=== PATIENT | male | born 1945 | race Caucasian/White ===

== ENCOUNTER 2020-04-22 06:12 | Day surgery (SDC) | payer MEDICARE, MEDICAID, SELFPAY ==
[2020-04-17 20:42] VITALS: BMI 29.0
--- NOTE | 2020-04-21 12:43 | HO.ANESPROP2 ---
Documented by User: Cary Rosa 04/21/20 13:09 HPI - Anesthesia Eval Consult details Narrative: 74yo M for Upper Endoscopy and Colonoscopy [facility] Past Medical History Medical History Above knee amputation of left lower extremity GERD (gastroesophageal reflux disease) History of esophagitis HTN (hypertension) Hypercholesteremia Thoracic aortic aneurysm Vertigo Surgical History Surgical History H/O removal of cyst History of carpal tunnel surgery of left wrist History of carpal tunnel surgery of right wrist History of hand surgery History of total right knee replacement (TKR) Social History Social History Smoking Status: Never smoker Use of substances other than those prescribed or required for medical reasons: No Advance Directives: Yes Advance Directives Information Provided: Yes Advance Directives on File: Yes Advance Directives Date on File: 06/21/09 Meds Allergies Allergy/AdvReac Type Severity Reaction Status Date / Time morphine [MORPHINE] Allergy Mild NAUSEA Verified 04/17/20 20:32 acetaminophen [Ultracet] Allergy Unknown Drowsy Verified 04/17/20 20:32 Penicillins [PENICILLINS] Allergy Unknown NAUSEA & Verified 04/17/20 20:32 VOMITING tramadol [Ultracet] Allergy Unknown Nausea Verified 04/17/20 20:32 oxycodone [OXYCODONE] AdvReac Unknown NAUSEA Verified 04/17/20 20:32 SEAFOOD Allergy Unknown NAUSEA & Uncoded 03/06/20 15:01 VOMITING shellfish Allergy Unknown anaphylaxis Uncoded 01/10/20 00:00 Codeine Sulfate AdvReac Unknown Nausea Uncoded 04/17/20 20:32 Home Medications Medication Instructions Recorded Confirmed Type Aspirin Low Dose 81 mg PO DAILY 04/17/20 04/17/20 History Fish Oil 1 cap PO DAILY 04/17/20 04/17/20 History Vitamin C 1 cap PO DAILY 04/17/20 04/17/20 History amlodipine 5 mg PO DAILY 04/17/20 04/17/20 History atenolol 50 mg PO DAILY 04/17/20 04/17/20 History atorvastatin 40 mg PO DAILY 04/17/20 04/17/20 History levothyroxine 112 mcg PO DAILY 04/17/20 04/17/20 History meclizine 25 mg PO DAILY 04/17/20 04/17/20 History pantoprazole 40 mg PO DAILY 04/17/20 04/17/20 History vitamin B complex 1 cap PO DAILY 04/17/20 04/17/20 History Exam Exam Date and Time: April 21, 2020 1243 Height,Weight and Vital Signs: Height 5 ft 9 in Weight 89.358 kg Pertinent Lab Results Pertinent Lab Results: Laboratory Tests 11/08/19 11/08/19 07:35 07:35 WBC 10.0 RBC 5.43 Hgb 16.5 Hct 47.3 Plt Count 236 Sodium 137 Potassium 5.1 Chloride 100 BUN 18 H Creatinine 0.99 Narrative Narrative: EKG 06/2019: SB@57 ECHO 05/2019: LVEF 60-65%, no signif valve pathology, mild dilation of the asc aorta @ 4.2cm Stress 2017: nml perfusion Assessment and Plan Assessment Anesthesia Assessment: Chart Reviewed Documented by User: María Russell 04/22/20 07:54 PMFSH Past Medical History Medical History Above knee amputation of left lower extremity GERD (gastroesophageal reflux disease) History of esophagitis HTN (hypertension) Hypercholesteremia Thoracic aortic aneurysm Vertigo Surgical History Surgical History H/O removal of cyst History of carpal tunnel surgery of left wrist History of carpal tunnel surgery of right wrist History of hand surgery History of total right knee replacement (TKR) Social History Social History Smoking Status: Never smoker Use of substances other than those prescribed or required for medical reasons: No Advance Directives: Yes Advance Directives Information Provided: Yes Advance Directives on File: Yes Advance Directives Date on File: 06/21/09 Meds Allergies Allergy/AdvReac Type Severity Reaction Status Date / Time morphine [MORPHINE] Allergy Mild NAUSEA Verified 04/17/20 20:32 acetaminophen [Ultracet] Allergy Unknown Drowsy Verified 04/17/20 20:32 Penicillins [PENICILLINS] Allergy Unknown NAUSEA & Verified 04/17/20 20:32 VOMITING tramadol [Ultracet] Allergy Unknown Nausea Verified 04/17/20 20:32 oxycodone [OXYCODONE] AdvReac Unknown NAUSEA Verified 04/17/20 20:32 SEAFOOD Allergy Unknown NAUSEA & Uncoded 03/06/20 15:01 VOMITING shellfish Allergy Unknown anaphylaxis Uncoded 01/10/20 00:00 Codeine Sulfate AdvReac Unknown Nausea Uncoded 04/17/20 20:32 Home Medications Medication Instructions Recorded Confirmed Type Aspirin Low Dose 81 mg PO DAILY 04/17/20 04/17/20 History Fish Oil 1 cap PO DAILY 04/17/20 04/17/20 History Vitamin C 1 cap PO DAILY 04/17/20 04/17/20 History amlodipine 5 mg PO DAILY 04/17/20 04/17/20 History atenolol 50 mg PO DAILY 04/17/20 04/17/20 History atorvastatin 40 mg PO DAILY 04/17/20 04/17/20 History levothyroxine 112 mcg PO DAILY 04/17/20 04/17/20 History meclizine 25 mg PO DAILY 04/17/20 04/17/20 History pantoprazole 40 mg PO DAILY 04/17/20 04/17/20 History vitamin B complex 1 cap PO DAILY 04/17/20 04/17/20 History Exam Airway Mallampati Class: II TM Dist: >3cm Neck ROM: Full Heart: RRR Lungs: CTA Assessment and Plan Assessment Anesthesia Assessment: Anesthesia Plan Discussed and Chart Reviewed Final Anesthetic Review NPO: Yes ASA Class: II Final Preanesthetic Review: Meds/Allgs Chart Reviewed, Consent Obtained/Reviewed and Anes Risks/Benef Reviewed Patient Risk: Intermediate Procedure Risk: Intermediate Anesthetic Plan Anesthetic Plan: MAC: Disposition: Standard PACU
[2020-04-22 06:36] VITALS: BP 142/70; PULSE 66; RESP 16; TEMP 36.6; O2SAT 98
[2020-04-22] MEDS: Lactated Ringers 1,000 ML 100 ML IVCONT (06:52)
--- NOTE | 2020-04-22 07:32 | MHC.SHP ---
Pre-Procedural Eval Section B Chief Complaint: SCREENING,GERD Details of Present Illness: see H&P, no changes Relevant Family History (Specify if Yes): No Relevant Social History: None Present Medications: see Short Stay Collaborative assessment Medical History: Significant History (no changes) History of Previous Operations: No relevant previous surgery Allergies: Allergies Allergy/AdvReac Type Severity Reaction Status Date / Time morphine [MORPHINE] Allergy Mild NAUSEA Verified 04/17/20 20:32 acetaminophen [Ultracet] Allergy Unknown Drowsy Verified 04/17/20 20:32 Penicillins [PENICILLINS] Allergy Unknown NAUSEA & Verified 04/17/20 20:32 VOMITING tramadol [Ultracet] Allergy Unknown Nausea Verified 04/17/20 20:32 oxycodone [OXYCODONE] AdvReac Unknown NAUSEA Verified 04/17/20 20:32 SEAFOOD Allergy Unknown NAUSEA & Uncoded 03/06/20 15:01 VOMITING shellfish Allergy Unknown anaphylaxis Uncoded 01/10/20 00:00 Codeine Sulfate AdvReac Unknown Nausea Uncoded 04/17/20 20:32 Review of Systems Sugical H&P ROS: Negative: Constitution, Cardiovascular, Respiratory, Neurological, Psychiatric, Hem-Onc, Allergic/Immunologic, Gastrointestinal, Genitourinary, Musculoskeletal, Integumentary, Endocrine and Eyes/Ears/Nose/Throat Exam Surgical H&P Exam: Normal: HEENT, Normal: Heart, Normal: Lungs, Normal: Extremities, Normal: Abdomen, Normal: Skin and Normal: Neurological Plan Diagnosis/Plan: Unchanged Patient has been examined and remains a candidate for the planned procedure
[2020-04-22 08:14] VITALS: BP 105/63; PULSE 55; RESP 16; TEMP 36.6; O2SAT 99
--- NOTE | 2020-04-22 08:22 | PM.OP ---
Brief Operative Note Date of procedure: 04/22/20 Pre-op diagnosis: gerd, screening Post-op diagnosis: same (colon polyps) Procedure: egd/colon Surgeon: Yandel Cuellar Anesthesia: MAC Estimated blood loss (mL): 5 Pathology: other (polyps 80, 50 cm) Condition: stable Disposition: PACU
[2020-04-22 08:31] VITALS: BP 103/57; PULSE 62; RESP 13; TEMP 36.6; O2SAT 98
--- NOTE | 2020-04-22 08:55 | OP_ITS ---
SURGEON: Yandel Cuellar MD INDICATIONS: 1. Gastroesophageal reflux disease. 2. Colon cancer screening. PREOPERATIVE DIAGNOSIS: POSTOPERATIVE DIAGNOSIS: PROCEDURE PERFORMED: 1. Upper endoscopy. 2. Colonoscopy to the terminal ileum with biopsy. ESTIMATED BLOOD LOSS: COMPLICATIONS: ANESTHESIA: ASSISTANTS: SPECIMENS: MEDICATIONS: Monitored anesthesia care. DESCRIPTION OF PROCEDURE: History and physical performed. The risks and benefits of the procedure were explained to the patient. Informed consent was obtained. The patient was placed in the left lateral decubitus position. The Olympus video gastroscope was introduced into the esophagus, stomach, and duodenum. Examination was performed and the scope was removed. He was repositioned for colonoscopy. A digital rectal exam was performed and was found to be normal. The Olympus pediatric video colonoscope was introduced into the rectum and advanced to the cecum without difficulty. The cecum was identified by transillumination, palpation, and identification of ileocecal valve. Examination was performed. The scope was removed. He tolerated both procedures well and was taken to recovery area in stable condition. FINDINGS: UPPER ENDOSCOPY: Esophagus: The esophagus was normal. The EG junction was slightly irregular. There was no esophagitis. Stomach: Stomach showed no evidence of masses, ulcers, or polyps. There was a small hiatal hernia. Duodenum: The bulb and second portion were normal. COLONOSCOPY: The terminal ileum was normal. The visualized colonic mucosa was within normal limits without evidence of masses or ulcers. Two polyps were identified, removed with biopsy forceps. Both measured less than 5 mm. The first was located at 80 cm. A second was located at 50 cm. No other polyps were identified. The quality of prep was good. Retroflexed examination showed moderate-sized internal hemorrhoids. IMPRESSION: 1. Gastroesophageal reflux disease. 2. Small hiatal hernia. 3. Colon polyps. RECOMMENDATION: Follow up the biopsy results. MD ZULEMA Storey/KIMBER / [id number]
--- NOTE | 2020-04-22 09:07 | HO.POSTANES ---
Post Anesthesia Evaluation Post Anesthesia Evaluation Vital Signs: Vital Signs Temp Pulse Resp BP Pulse Ox 04/22/20 08:31 97.8 F 62 13 103/57 L 98 04/22/20 08:14 97.8 F 55 16 105/63 99 04/22/20 06:36 97.8 F 66 16 142/70 H 98 Anesthesia: Monitored Mental Status: Awake Pain Control: Satisfactory Nausea/Vomiting: None Hydration: Adequate Anesthesia-Related Issues: No Anes. Related Issues
== END 2020-04-22 09:50 | disposition home or self-care (01) ==
PROVIDERS: PCP Internal Medicine; Visit Provider Internal Medicine Gastroenterology
PROC: (CPT 45380; principal; 2020-04-22 07:30)
DX: Z12.11 Encounter for screening for malignant neoplasm of colon (principal); Z86.010 Personal history of colon polyps; D12.4 Benign neoplasm of descending colon; K63.5 Polyp of colon; K64.8 Other hemorrhoids; K21.9 Gastro-esophageal reflux disease without esophagitis; K44.9 Diaphragmatic hernia without obstruction or gangrene; I10 Essential (primary) hypertension; R42 Dizziness and giddiness; Z89.612 Acquired absence of left leg above knee; Z96.651 Presence of right artificial knee joint; Z79.82 Long term (current) use of aspirin; Z79.899 Other long term (current) drug therapy; Z88.0 Allergy status to penicillin; Z88.8 Allergy status to other drugs, medicaments and biological substances
CPT/HCPCS: 45380; 43239; 88305

== ENCOUNTER 2020-06-03 07:33 | Outpatient (REF) | payer MEDICARE, MEDICAID, SELFPAY ==
[2020-06-03 11:13] LABS: MANUAL DIFF FLAG NO
[2020-06-03 11:22] LABS: Basophils Absolute Auto 0.1 X10*3/uL (0.0-0.2); Basophils Percent Auto 0.9 % (0-2); Eosinophils Absolute Auto 0.5 X10*3/uL (0.0-0.4); Eosinophils Percent Auto 4.8 % (0-4); Hematocrit 48.8 % (42-52); Hemoglobin 16.4 g/dl (14.0-18.0); Imm Gran Abs Auto 0.12 X10*3/uL (0.00-0.03); Imm Gran Pct Auto 1.2 % (0.0-0.4); Lymphocytes Absolute Auto 3.3 X10*3/uL (1.2-4.9); Lymphocytes Percent Auto 33.2 % (20-40); Mean Corpuscular HGB Conc 33.6 g/dl (31.0-36.0); Mean Corpuscular Hemoglobin 29.6 pg (27.0-33.0); Mean Corpuscular Volume 88.1 fL (80-98); Mean Platelet Volume 10.5 fL (9.4-12.4); Monocytes Absolute Auto 0.9 X10*3/uL (0.1-1.2); Monocytes Percent Auto 8.6 % (2-11); Neutrophils Absolute Auto 5.1 X10*3/uL (2.0-8.3); Neutrophils Percent Auto 51.3 % (45-73); Platelet Count 274 X10*3/uL (160-400); Red Blood Count 5.54 X10*6/uL (4.60-5.80); Red Cell Distribution Width 13.3 % (11.0-16.0)
[2020-06-03 12:28] LABS: Alanine Aminotransferase 26 U/L (0-40); Albumin Level 4.4 g/dL (3.5-5.0); Alkaline Phosphatase 66 U/L (39-117); Anion Gap 16 (12-20); Aspartate Amino Transferase 24 U/L (5-37); Bilirubin Total 1.2 mg/dL (0.0-1.0); Blood Urea Nitrogen 14 mg/dL (9-16); Carbon Dioxide 24 mmol/L (22-29); Chloride 101 mmol/L (96-108); Cholesterol 154 mg/dL; Estimated Glomerular Filt Rate > 60; Glucose Fasting 147 mg/dL (60-99); HDL Cholesterol 41 mg/dL; LDL Cholesterol Calculated 68 mg/dl; Potassium 5.4 mmol/l (3.3-5.1); Sodium 136 mmol/L (135-145); Total Protein 7.1 g/dL (6.5-8.0); Triglycerides 226 mg/dL
[2020-06-03 12:49] LABS: Free T4 (Free Thyroxine) 1.01 ng/dL (0.71-1.85); Thyroid Stimulating Hormone 3.41 uIU/mL (0.32-4.0)
== END 2020-06-03 07:34 | disposition home or self-care (01) ==
LOC: HO.HMGCLDS 07:33
PROVIDERS: PCP Internal Medicine; Visit Provider Internal Medicine
DX: E78.00 Pure hypercholesterolemia, unspecified (principal); K21.9 Gastro-esophageal reflux disease without esophagitis; I71.2 Thoracic aortic aneurysm, without rupture; E03.9 Hypothyroidism, unspecified; I10 Essential (primary) hypertension; Z87.19 Personal history of other diseases of the digestive system
CPT/HCPCS: 36415; 80053; 80061; 84439; 84443; 85025

== ENCOUNTER → 2021-01-15 10:13 | Outpatient (REF) | payer MEDICARE, MEDICAID, SELFPAY ==
--- NOTE | 2021-01-15 10:21 | CA_ITS ---
Transthoracic Echocardiogram Patient (Last, First, Middle): Lazaro Dotson J Gender: Male Date of : 1945 Age: 75 Procedure Date: 01/15/2021 Procedure Type: Transthoracic Echocardiogram Location: OP Height: 177.8 cm Weight: 88.45 kg BSA: 2.06 m2 Heart Rate: bpm BP: 124 / 74 mmHg Fruit Or Nut Picker: [email or web address] Referring MD: Chico Berry MD Symptoms: I77.810 THORACIC AORTIC ECTASIA Study Quality: Fair ECG Rhythm: Sinus Conclusions: - The left ventricular systolic function is normal. The calculated ejection fraction is 63% by biplane method. - There is mild calcification of the aortic valve. - There is mild mitral annular calcification. Findings Left Ventricle Normal left ventricular cavity size. There is normal left ventricular wall thickness. The left ventricular systolic function is normal. The calculated ejection fraction is 63% by biplane method. There is no evidence of regional wall motion abnormalities. E/E prime ratio is between 8 and 15 consistent with indeterminate filling pressures. Evidence suggests grade I (mild) diastolic dysfunction. Right Ventricle Normal right ventricular cavity size and systolic function. Atria Both atria are normal in size. Aortic Valve There is a normal trileaflet aortic valve. There is mild calcification of the aortic valve. There is no aortic valve stenosis. There is no aortic valve regurgitation. Mitral Valve There is mild mitral annular calcification. There is no mitral valve regurgitation. There is no mitral valve stenosis. Pulmonic Valve The pulmonic valve was not well visualized. Tricuspid Valve Normal tricuspid valve structure. There is trace tricuspid valve regurgitation. The pulmonary artery systolic pressure is normal. Great Vessels Top normal ascending aortic size at 3.9cm. Venous The inferior vena cava was not well visualized. Pericardium/Pleural There is no evidence of pericardial effusion. Prior Study Comparison Changes noted compared to prior study dated: 06/06/2019. Ascending aortic dimension smaller. Measurements 2D Linear Measurements IVSd: 0.97 0.6-0.9/0.6-1.0 cm LVIDd: 4.21 3.9-5.3/4.2-5.9 cm LVIDd Index: 2.04 2.4-3.2/2.2-3.1 cm/m2 LVIDs: 2.74 2.0-3.6 cm LVPWd: 1.05 0.7-1.1 cm Ao Root: 3.60 2.1-3.5 cm LA Diam: 3.00 2.7-3.8/3.0-4.0 cm LAIDs Index: 1.46 1.5-2.3 cm/m2 LV Mass: 174.36 67-162/88-224 g LV Mass Index: 84.64 43-95/49-115 g/m2 LVOT Diam: 2.80 3.0+(-)1.3 cm 2D Systolic Function EF 4C: 70.60 >55% EF 2C: 58.70 >55% EF BiP: 63.10 >55% Mitral Valve MV Pk E: 0.63 MV PK A: 0.83 MV Decel Time: 348.00 E/A: 0.80 E'Lateral: 7.40 E'Medial: 5.11 E/E' Med: 12.40 E/E' Lat: 8.60 PHT: 102.00 MVA PHT: 2.16 Decel [place]: 1.82 Aortic Valve AoV Pk Bud: 1.44 AoV Pk Grad: 8.00 LVOT LVOT Pk Bud: 0.83 LVOT Mn Bud: 0.50 LVOT VTI: 0.16 LVOT Pk Grad: 3.00 LVOT Mn Grad: 1.00 LVOT Diam: 2.80 LVOT Area: 6.16 Diastolic Function MV Pk E: 0.63 MV Pk A: 0.83 E/A: 0.80 E'Medial: 5.11 E/E' Med: 12.40 E' Laterial: 7.40 E/E' Lat: 8.60 Right Ventricle TAPSE (mm): 1.99 Tricuspid Valve TR Pk Bud: 1.83 TR Pk Grad: 13.00 RA Press: 3.00 RVSP: 16.00 Great Vessels Aorta Ao Root-2D: 3.60 2.0-3.7 cm Ao Asc: 3.90 2.1-3.4 cm Updated in Other Vendor System with Status of Final Chico Berry MD electronically signed on 01/17/2021 11:45:16 AM with status of Final
== END ==
LOC: HO.CARD 10:13
PROVIDERS: PCP Internal Medicine; Visit Provider Internal Medicine
DX: I77.810 Thoracic aortic ectasia (principal)
CPT/HCPCS: 93306

== ENCOUNTER → 2021-01-21 10:24 | Outpatient (BNVA) | payer MEDICARE, MEDICAID, SELFPAY | PROVIDERS: PCP Internal Medicine; Visit Provider Internal Medicine | DX: I77.89 Other specified disorders of arteries and arterioles (principal); I10 Essential (primary) hypertension; I44.0 Atrioventricular block, first degree | CPT/HCPCS: 93005; 99212 ==

== ENCOUNTER 2021-02-10 06:13 | Outpatient (REF) | payer MEDICARE, MEDICAID, SELFPAY ==
[2021-02-10 12:33] LABS: Alanine Aminotransferase 38 U/L (0-40); Albumin Level 4.4 g/dL (3.5-5.0); Alkaline Phosphatase 72 U/L (39-117); Anion Gap 17 (12-20); Aspartate Amino Transferase 29 U/L (5-37); Bilirubin Total 1.4 mg/dL (0.0-1.0); Blood Urea Nitrogen 13 mg/dL (9-16); Calcium 9.4 mg/dL (8.4-10.2); Carbon Dioxide 25 mmol/L (22-29); Chloride 100 mmol/L (96-108); Cholesterol 151 mg/dL; Estimated Glomerular Filt Rate > 60; Glucose Fasting 159 mg/dL (60-99); HDL Cholesterol 41 mg/dL; LDL Cholesterol Calculated 68 mg/dl; Sodium 137 mmol/L (135-145); Total Protein 7.1 g/dL (6.5-8.0); Triglycerides 214 mg/dL
[2021-02-10 12:36] LABS: Creatinine Urine 75.42 mg/dL; Microalbum/Creatinine Ratio Ur 74.2 ug/mg cr
[2021-02-10 12:55] LABS: Free T4 (Free Thyroxine) 1.02 ng/dL (0.71-1.85); Thyroid Stimulating Hormone 6.02 uIU/mL (0.32-4.0)
== END 2021-02-10 06:14 | disposition home or self-care (01) ==
LOC: HO.HMGCLDS 06:13
PROVIDERS: PCP Internal Medicine; Visit Provider Internal Medicine
DX: Q45.3 Other congenital malformations of pancreas and pancreatic duct (principal); E03.9 Hypothyroidism, unspecified; E78.00 Pure hypercholesterolemia, unspecified; K21.9 Gastro-esophageal reflux disease without esophagitis; Z87.19 Personal history of other diseases of the digestive system
CPT/HCPCS: 36415; 80053; 80061; 82043; 84439; 84443

== ENCOUNTER 2021-04-28 08:52 | Outpatient (REF) | payer MEDICARE, MEDICAID, SELFPAY ==
[2021-04-28 12:33] LABS: Free T4 (Free Thyroxine) 1.06 ng/dL (0.71-1.85); Thyroid Stimulating Hormone 2.71 uIU/mL (0.32-4.0)
[2021-04-28 12:34] LABS: Alanine Aminotransferase 29 U/L (0-40); Anion Gap 14 (12-20); Aspartate Amino Transferase 22 U/L (5-37); Blood Urea Nitrogen 12 mg/dL (9-16); Calcium 9.1 mg/dL (8.4-10.2); Carbon Dioxide 24 mmol/L (22-29); Chloride 106 mmol/L (96-108); Cholesterol 119 mg/dL; Estimated Glomerular Filt Rate > 60; Glucose Fasting 128 mg/dL (60-99); HDL Cholesterol 38 mg/dL; LDL Cholesterol Calculated 60 mg/dl; Potassium 4.8 mmol/L (3.3-5.1); Sodium 139 mmol/L (135-145); Triglycerides 109 mg/dL
[2021-04-28 12:56] LABS: Estimated Average Glucose 137 mg/dL; Hemoglobin A1c % 6.4 %
== END 2021-04-28 08:53 | disposition home or self-care (01) ==
LOC: HO.HMGCLDS 08:52
PROVIDERS: PCP Internal Medicine; Visit Provider Internal Medicine
DX: E11.9 Type 2 diabetes mellitus without complications (principal); I10 Essential (primary) hypertension; E03.9 Hypothyroidism, unspecified; E78.00 Pure hypercholesterolemia, unspecified
CPT/HCPCS: 36415; 80048; 80061; 83036; 84439; 84443; 84450; 84460

== ENCOUNTER 2021-06-02 06:26 | Emergency (ER) | payer OTHER, SELFPAY ==
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
[2021-06-02 06:36] VITALS: BP 145/65; PULSE 63; RESP 16; TEMP 36.5; O2SAT 97; BMI 20.5
[2021-06-02 06:44] VITALS: BP 153/90; PULSE 64; O2SAT 99
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
== END 2021-06-02 09:32 | disposition home or self-care (01) ==
PROVIDERS: Emergency Provider Emergency Medicine; PCP Internal Medicine
DX: S80.811A Abrasion, right lower leg, initial encounter (principal); V49.49XA Driver injured in collision with other motor vehicles in traffic accident, initial encounter; M79.18 Myalgia, other site; Y93.89 Activity, other specified; Y92.411 Interstate highway as the place of occurrence of the external cause; Y99.9 Unspecified external cause status
CPT/HCPCS: 70450; 72125; 99283; 99284

== ENCOUNTER 2021-11-23 06:05 | Outpatient (REF) | payer MEDICARE, MEDICAID, SELFPAY ==
[2021-11-23 11:53] LABS: Alanine Aminotransferase 28 U/L (0-40); Anion Gap 15 (12-20); Aspartate Amino Transferase 26 U/L (5-37); Blood Urea Nitrogen 20 mg/dL (9-16); Calcium 9.2 mg/dL (8.4-10.2); Carbon Dioxide 25 mmol/L (22-29); Chloride 103 mmol/L (96-108); Cholesterol 147 mg/dL; Estimated Glomerular Filt Rate > 60; Glucose Fasting 140 mg/dL (60-99); HDL Cholesterol 45 mg/dL; LDL Cholesterol Calculated 75 mg/dl; Potassium 5.2 mmol/L (3.3-5.1); Sodium 138 mmol/L (135-145); Triglycerides 139 mg/dL
[2021-11-23 12:02] LABS: Free T4 (Free Thyroxine) 1.22 ng/dL (0.71-1.85); Thyroid Stimulating Hormone 1.54 uIU/mL (0.32-4.0)
[2021-11-23 12:10] LABS: Creatinine Urine 65.19 mg/dL; Microalbum/Creatinine Ratio Ur 13.8 ug/mg cr
== END 2021-11-23 06:06 | disposition home or self-care (01) ==
LOC: HO.HMGCLDS 06:05
PROVIDERS: PCP Internal Medicine; Visit Provider Internal Medicine
DX: E11.9 Type 2 diabetes mellitus without complications (principal); E78.00 Pure hypercholesterolemia, unspecified; I10 Essential (primary) hypertension; E03.9 Hypothyroidism, unspecified
CPT/HCPCS: 36415; 80048; 80061; 82043; 84439; 84443; 84450; 84460

== ENCOUNTER → 2022-01-25 08:23 | Outpatient (REF) | payer MEDICARE, MEDICAID, SELFPAY ==
--- NOTE | 2022-01-25 08:26 | CA_ITS ---
Transthoracic Echocardiogram Patient (Last, First, Middle): Lazaro Dotson J Gender: Male Date of : 1945 Age: 76 Procedure Date: 01/25/2022 Procedure Type: Transthoracic Echocardiogram Location: OP Height: 177.8 cm Weight: 89.36 kg BSA: 2.07 m2 Heart Rate: 99 bpm BP: 122 / 68 mmHg Orientation & Mobility Specialist: SB Referring MD: Chico Berry MD Symptoms: I77.89 - Other specified disorders of arteries and arteri... Study Quality: Adequate ECG Rhythm: Sinus Conclusions: - The left ventricular systolic function is normal. The calculated ejection fraction is 61% by biplane method. - There is mild calcification of the aortic valve. - There is mild mitral annular calcification. Findings Left Ventricle Normal left ventricular cavity size. There is normal left ventricular wall thickness. The left ventricular systolic function is normal. The calculated ejection fraction is 61% by biplane method. There is no evidence of regional wall motion abnormalities. E/E prime ratio is between 8 and 15 consistent with indeterminate filling pressures. Evidence suggests grade I (mild) diastolic dysfunction. There is mild septal asymmetric hypertrophy. Right Ventricle Normal right ventricular cavity size. There is low normal right ventricular systolic function. (TAPSE re-measured) Atria Both atria are normal in size. Aortic Valve There is a normal trileaflet aortic valve. There is mild calcification of the aortic valve. There is no aortic valve stenosis. There is no aortic valve regurgitation. Mitral Valve There is mild mitral annular calcification. There is trace mitral valve regurgitation. There is no mitral valve stenosis. Pulmonic Valve The pulmonic valve is likely normal. Tricuspid Valve Normal tricuspid valve structure. There is trace tricuspid valve regurgitation. Tricuspid regurgitation envelope is inadequate for calculation of right ventricular systolic pressure. Great Vessels There is no dilatation of the sinuses of Valsalva measuring 4.00 cm and no dilatation of the ascending aorta measuring 3.80 cm. Venous The inferior vena cava was not well visualized. Pericardium/Pleural There is no evidence of pericardial effusion. Prior Study Comparison No significant change compared to prior study dated: 01/15/2021. Measurements 2D Linear Measurements IVSd: 0.78 0.6-0.9/0.6-1.0 cm LVIDd: 5.05 3.9-5.3/4.2-5.9 cm LVIDd Index: 2.44 2.4-3.2/2.2-3.1 cm/m2 LVIDs: 3.36 2.0-3.6 cm LVPWd: 0.52 0.7-1.1 cm LA Diam: 3.00 2.7-3.8/3.0-4.0 cm LAIDs Index: 1.45 1.5-2.3 cm/m2 LV Mass: 132.98 67-162/88-224 g LV Mass Index: 64.24 43-95/49-115 g/m2 LVOT Diam: 2.10 3.0+(-)1.3 cm 2D Systolic Function EF 4C: 62.10 >55% EF 2C: 61.40 >55% EF BiP: 61.20 >55% Mitral Valve MV Pk E: 0.72 MV PK A: 0.92 MV Decel Time: 358.00 E/A: 0.80 E'Lateral: 7.83 E'Medial: 5.00 E/E' Med: 14.30 E/E' Lat: 9.10 PHT: 105.00 MVA PHT: 2.10 Decel Ness: 2.00 Aortic Valve AoV Pk Bud: 1.26 AoV Mn Bud: 0.95 AoV VTI: 0.26 AoV Pk Grad: 6.00 Aov Mn Grad: 4.00 SHELLY Cont.VTI: 3.28 LVOT LVOT Pk Bud: 1.18 LVOT Mn Bud: 0.76 LVOT VTI: 0.25 LVOT Pk Grad: 6.00 LVOT Mn Grad: 3.00 LVOT Diam: 2.10 LVOT Area: 3.46 Diastolic Function MV Pk E: 0.72 MV Pk A: 0.92 E/A: 0.80 E'Medial: 5.00 E/E' Med: 14.30 E' Laterial: 7.83 E/E' Lat: 9.10 Right Ventricle TAPSE (mm): 10.90 TVS' Bud: 9.10 Great Vessels Aorta Sinus of Valsalva: 4.00 2.0-3.5 cm Ao Asc: 3.80 2.1-3.4 cm Pulmonary Valve PV Pk Bud: 1.03 Peak PV Grad: 4.00 Updated in Other Vendor System with Status of Final Chico Berry MD electronically signed on 01/25/2022 11:16:16 AM with status of Final
== END ==
LOC: HO.CARD 08:23
PROVIDERS: PCP Internal Medicine; Visit Provider Internal Medicine
DX: I77.89 Other specified disorders of arteries and arterioles (principal)
CPT/HCPCS: 93306

== ENCOUNTER 2023-11-24 08:14 | Emergency (ER) | payer MEDICARE, MEDICAID, SELFPAY ==
--- NOTE | 2023-11-24 | ECG_ITS ---
Test Reason : HYPERKALEMIA Blood Pressure : / mmHG Vent. Rate : 055 BPM Atrial Rate : 055 BPM P-R Int : 282 ms QRS Dur : 100 ms QT Int : 462 ms P-R-T Axes : 015 -09 039 degrees QTc Int : 441 ms Sinus bradycardia with 1st degree A-V block Incomplete right bundle branch block Borderline ECG When compared with ECG of 14-APR-2017 08:54, No significant change was found Referred By: Aye Hernandez Electronically Signed By:NANCY ROBERT MD
[2023-11-24 08:17] VITALS: BP 144/77; PULSE 59; RESP 18; TEMP 36.1; O2SAT 97; BMI 27.7
--- NOTE | 2023-11-24 08:34 | PC.NURSE ---
patient a&ox3, pt states his rt shoulder has a wound that previously had a scab on that the dr took off, pt states his daughter put stuff on it with a bandaid, notable redness upon this nurse taking off one of the XL adhesive bandages- the redness is in the exact shape of the bandage that was removed, pt states that he has an allergy to bandages if kept on too long. pt states he has 8/10 pain and didnt take any OTC medication for pain, pt states Im stubborn when asked why he didnt take any otc pain medication.
--- NOTE | 2023-11-24 08:53 | ED.GENADULT ---
HPI - General Adult General Chief complaint: Skin/Abscess/Foreign Body Stated complaint: Upper back pain L side Time Seen by Provider: 11/24/23 08:40 Source: patient Mode of arrival: ambulatory Limitations: no limitations History of Present Illness ED Provider: Aye Hernandez PA-C HPI narrative: This is a 77 yo male with a pmh of T2DM, esophagitis, BPH, below knee amputation of LLE, OA, ascending aorta enlargement, GERD, hypercholesterolemia, vertigo, pancreatic divisum, aquired hypothyroidism presents with a sore/wound to the left upper shoulder/back x 1-2months. Patient reports increased redness/drainage/swelling to the area. Patient states he has seen his PCP about 3 weeks ago who advised to go to cyber security architect. States appointment is in March but since the pain and drianage has increased he wanted to come in today to get it checked out. Patient reports his Dr told him he did not believe the lesion was cancerous. Patient also states he had a similar lesion way back years ago on his mid back which he saw a cyber security architect for although he is not sure what it was. Related Data Home Medications ?Medication ?Instructions ?Recorded ?Confirmed Aspirin Low Dose 81 mg PO DAILY 04/17/20 12/07/21 Fish Oil 1 cap PO DAILY 04/17/20 12/07/21 Vitamin C 1 cap PO DAILY 04/17/20 12/07/21 vitamin B complex 1 cap PO DAILY 04/17/20 12/07/21 Previous Rx's ?Medication ?Instructions ?Recorded levothyroxine 112 mcg tablet See Rx Instructions PO DAILY #90 10/21/21 tabs metformin 500 mg tablet,extended 500 mg PO QPM #30 tabs 04/05/22 release 24 hr amlodipine 5 mg tablet 5 mg PO DAILY #90 tabs 05/18/22 meclizine 25 mg tablet 25 mg PO BID PRN dizziness #60 tabs 05/18/22 pantoprazole 40 mg tablet,delayed 40 mg PO DAILY #90 tabs 05/18/22 release ibuprofen 800 mg tablet 800 mg PO BID PRN pain #60 tabs 06/16/22 atorvastatin 40 mg tablet 40 mg PO DAILY #90 tabs 09/23/22 atenolol 50 mg tablet 50 mg PO DAILY #90 tabs 11/03/22 cephalexin 500 mg tablet 500 mg PO Q6H 10 days #40 tabs 11/24/23 Allergies Allergy/AdvReac Type Severity Reaction Status Date / Time morphine [MORPHINE] Allergy Mild NAUSEA Verified 11/24/23 08:21 tramadol [Ultracet] Allergy Unknown Nausea Verified 11/24/23 08:21 Penicillins [PENICILLINS] AdvReac Mild NAUSEA & Verified 11/24/23 08:21 VOMITING oxycodone [OXYCODONE] AdvReac Unknown NAUSEA Verified 11/24/23 08:21 SEAFOOD Allergy Unknown NAUSEA & Uncoded 11/24/23 08:21 VOMITING shellfish Allergy Unknown anaphylaxis Uncoded 11/24/23 08:21 Codeine Sulfate AdvReac Unknown Nausea Uncoded 11/24/23 08:21 Review of Systems Review of Systems: Yes all other systems are reviewed and are negative PMFSH Past Medical History Attestation statement: The following information was validated with the patient. 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 Osteoarthritis Pancreatic divisum Acquired hypothyroidism Thoracic aortic aneurysm Above knee amputation of left lower extremity Vertigo History of esophagitis GERD (gastroesophageal reflux disease) Hypercholesteremia Surgical History H/O removal of cyst History of hand surgery History of total right knee replacement (TKR) History of carpal tunnel surgery of right wrist History of carpal tunnel surgery of left wrist Family History Family History Father Lung cancer Daughter Breast cancer Mother Breast cancer Social History Social History Housing: House Alcohol intake: never Patient Tobacco Use Status: Never used Tobacco Smoked in Last 30 Days: No e-Cigarette/Vaping Use: Never Used Second Hand Smoke Exposure: No Use of substances other than those prescribed or required for medical reasons: No Advance Directives: Yes Advance Directives Information Provided: Yes Advance Directives on File: No Advance Directives Date on File: 01/02/10 Do you have a plan to hurt others: No Plan service: No Current occupational status: employed and retired Cognitive needs: No Hearing needs: No Vision needs: No Physical Exam ED Vital Signs: Vital Signs - 24 hr 11/24/23 08:17 11/24/23 09:27 11/24/23 10:20 Temperature 96.9 F 96.9 F 97.8 F Pulse Rate 59 59 60 Respiratory Rate 18 18 18 Blood Pressure 144/77 H 144/77 H 116/73 Pulse Oximetry 97 97 98 Oxygen Delivery Method Room Air Room Air Room Air 11/24/23 10:24 11/24/23 13:48 Temperature 98.0 F Pulse Rate 60 60 Respiratory Rate 14 16 Blood Pressure 120/68 Pulse Oximetry 98 Oxygen Delivery Method Room Air BMI result Body Mass Index 27.7 vss. Appearance: Alert.? Oriented X3.? No acute distress.? Head: Normocephalic, atraumatic, no step-offs or deformities Eyes: Pupils equal, round and reactive to light.? Neck: Normal inspection.? Neck supple.? CVS: Normal heart rate and rhythm.? Pulses normal.? Respiratory: No respiratory distress.? Breath sounds normal.? Abdomen: Soft and nontender.? Skin: + Raised erythematous skin nodule/growth to left shoulder/upper back with surrounding erythema in a rectangular shape, likely due to adhesive. Mild warmth noted. Mild tenderness to palpation. No drainage at time of exam. Extremities: 5/5 strength to bilateral upper and lower extremities Neuro: Oriented X 3.? No motor deficit.? No sensory deficit. CN 2-12 intact Course Reevaluation(s) Reevaluation #1: I did discuss with patient his allergy to amoxicillin. Reports he just gets nauseous. No hx of anaphylaxis, difficulty breathing. Time: 09:12 Reevaluation #2: Patient's patient will be discharged with Keflex. Time: 09:32 Reevaluation #3: CBC with slight leukocytosis could be secondary to cellulitis. Chemistry with elevated potassium 6.0 EKG obtained to rule out peak T-waves and dysrhythmias. Will give Lokelma, albuterol treatment. Time: 10:42 Additional Reevaluation(s): Patient's potassium is now 5 after Lokelma and albuterol treatment. Patient will be discharged home with prompt PCP follow-up advised repeat labs within 1-2 days. Low, is long acting so I suspect this 5.0 value will likely go down from there. No acute kidney injury. Asymptomatic. Patient states this always happens to him when he eats bananas. He states this has happened to him in the past. No chest pain, no shortness breath or palpitations. Educated patient on diagnosis and treatment plan, answered all question, patient verbalizes understanding. At this time patient will be discharged home, advised to return with new or worsening symptoms. Educated on worrisome signs and symptoms and when to return. At this time I feel comfortable discharge home. Medications Administered Discontinued Medications Generic Name Dose Route Start Last Admin Trade Name Freq PRN Reason Stop Dose Admin Albuterol Sulfate 5 mg 11/24/23 10:11 11/24/23 10:20 Albuterol Sulfate 2.5 Mg/0.5 Ml Vial.Neb INHALE 11/24/23 10:12 5 mg ONCE ONE Administration Sodium Zirconium Cyclosilicate 10 gm 11/24/23 10:11 11/24/23 10:24 Sodium Zirconium Cyclosilicate 10 Gm Powd.Pack PO 11/24/23 10:12 10 gm ONCE ONE Administration Medical Decision Making Medical Decision Making [facility] Narrative: 0900 77 yo male presents with skin growth to left upper back/shoulder x 2 months. Scheduled to see derm in March but increasing redness, drainage, pain. PE: Skin: + Raised erythematous skin nodule/growth to left shoulder/upper back with surrounding erythema in a rectangular shape, likely due to adhesive. Mild warmth noted. Mild tenderness to palpation. No drainage at time of exam Diferntial: Skin growth vs nodule, allergic reaction to adhesives, cellulitis. Unlikely necrotizing infection, neurovascular compromise, threat to limb, anaphylaxis. Malignancy remains on the differntial. Plan: Antibiotics, refer to dermatology Differential Diagnosis Differential Diagnoses: The differential diagnosis associated with the presentation includes Skin growth vs nodule, allergic reaction to adhesives, cellulitis. Unlikely necrotizing infection, neurovascular compromise, threat to limb, anaphylaxis. Malignancy remains on the differntial. Admission/Observation Consideration of admission/observation: Escalation of care including admission/observation considered (unlikely) Lab Data [facility] Lab Attestation statement: I reviewed the patient's lab results. 11/24/23 08:58 11/24/23 11:42 Labs: Lab Results 11/24/23 11/24/23 Range/Units 08:58 11:42 WBC 12.1 H (4.8-10.8) X10*3/uL RBC 5.47 (4.60-5.80) X10*6/uL Hgb 16.2 (14.0-18.0) g/dl Hct 47.0 (42.0-52.0) % MCV 85.9 (80.0-98.0) fL MCH 29.6 (27.0-33.0) pg MCHC 34.5 (31.0-36.0) g/dl RDW 13.6 (11.0-16.0) % Plt Count 251 (160-400) X10*3/uL MPV 9.5 (9.4-12.4) fL Immature Gran % (Auto) 1.1 H (0.0-0.4) % Neut % (Auto) 62.1 (45-73) % Lymph % (Auto) 23.5 (20-40) % [place] % (Auto) 8.4 (2-11) % Eos % (Auto) 4.1 H (0-4) % Baso % (Auto) 0.8 (0-2) % Lymph # (Auto) 2.8 (1.2-4.9) X10*3/uL [place] # (Auto) 1.0 (0.1-1.2) X10*3/uL Eos # (Auto) 0.5 H (0.0-0.4) X10*3/uL Baso # (Auto) 0.1 (0.0-0.2) X10*3/uL Abs Immat Gran (auto) 0.13 H (0.00-0.03) X10*3/uL Absolute Neuts (auto) 7.5 (2.0-8.3) x10*3/uL Absolute Nucleated RBC 0.000 (0.0-0.012) X10*3/uL Nucleated RBC % (auto) 0.0 (0.0-0.2) /100WBC Sodium 140 140 (135-145) mmol/L Potassium 6.0 H* 5.0 (3.3-5.1) mmol/L Chloride 105 105 (96-108) mmol/L Carbon Dioxide 25 28 (22-29) mmol/L Anion Gap 16 12 (12-20) BUN 19 H 19 H (9-16) mg/dL Creatinine 0.89 0.84 (0.5-1.4) mg/dL Estim Creat Clear Calc 75.1 79.5 Estimated GFR > 60 > 60 Random Glucose 163 H 126 H (60-115) mg/dL Calcium 10.0 D 9.9 (8.4-10.2) mg/dL Total Bilirubin 1.3 H (0.0-1.0) mg/dL AST 20 (5-37) U/L ALT 26 (0-40) U/L Alkaline Phosphatase 68 (39-117) U/L Total Protein 7.5 (6.5-8.0) g/dL Albumin 4.7 (3.5-5.0) g/dL Independent Interpretation I performed an independent interpretation of an: EKG (Ventricular rate of 55 SD slightly prolonged, QRS normal, QT/QTC normal EKG sinus bradycardia with a first-degree AV block no peaked T-waves no ST elevations or inversions concerning for acute ischemia.) External Record Review External record reviewed: Inpatient record, Office record, Outpatient record, Prior outpatient labs, Prior outpatient radiology, Primary care record and Outside ED record Prescription Management I considered prescription management with: Antibiotic (Keflex) Chronic Conditions Patient?s care impacted by: Diabetes, Hypertension and Other (BPH, ascending aorta enlargement, OA, GERD, hypercholesterolemia) Critical Care Time Critical Care Time Critical Care Time: Yes Total Critical Care Time: 35 Attestation: I attest to this time spent taking care of the patient, obtaining history, physical, reviewing labs, imaging, speaking to my attending, specialist or hospitalist. Discharge Plan Discharge Clinical Impression: Cellulitis, Abnormal skin growth, Acute hyperkalemia, AV bloc first degree Patient Disposition: Home, Self-Care Instructions: Potassium Content of Foods List (ED) Additional Instructions: Take your medications as prescribed. If you were prescribed antibiotics today, it is important that you take your medication to their entirety, do not skip any doses, do not finish them early. Follow-up with your primary care provider this week. Return to the emergency department with new or worsening symptoms. Such as fevers, chills, chest pain, shortness of breath, nausea, vomiting, dizziness, headache, vision changes, lethargy In case of emergency call 911 Please follow-up with Dermatology [facility] (as soon as possible!), you will likely need a biopsy. This could be malignant or cancerous so it is important that you follow-up promptly. Seems like your allergic to bandaids! Dont use them! Use non adhesive pads and paper tape. No more bananas. Call your PCP today for follow up within 1-2 days for high potassium Prescriptions: New cephalexin 500 mg tablet 500 mg PO Q6H 10 Days Qty: 40 0RF No Action levothyroxine 112 mcg tablet See Rx Instructions PO DAILY Qty: 90 3RF Rx Instructions: takes 1 tablet alternating with half a tablet every other day PO daily; metformin 500 mg tablet extended release 24 hr 500 mg PO QPM Qty: 30 5RF amlodipine 5 mg tablet 5 mg PO DAILY Qty: 90 1RF pantoprazole 40 mg tablet,delayed release (DR/EC) 40 mg PO DAILY Qty: 90 1RF meclizine 25 mg tablet 25 mg PO BID PRN (Reason: dizziness) Qty: 60 0RF ibuprofen 800 mg tablet 800 mg PO BID PRN (Reason: pain) Qty: 60 0RF atorvastatin 40 mg tablet 40 mg PO DAILY Qty: 90 1RF Rx Instructions: Schedule next PCP appt for future refills atenolol 50 mg tablet 50 mg PO DAILY Qty: 90 0RF Rx Instructions: schedule next PCP appt for future refills Aspirin Low Dose 81 mg PO DAILY Fish Oil 1 cap PO DAILY Vitamin C 1 cap PO DAILY vitamin B complex 1 cap PO DAILY Referrals: [facility] [Provider Group] - 1 day Adolph Bolden MD [Primary Care Provider] - 2 days Stand Alone Forms: Work/School Release Interventions: ED Discharge Assessment Last Done: 11/24/23 13:48 Discharge Date/Time: 11/24/23 13:30 Print Language: Filipino
[2023-11-24 09:02] LABS: MANUAL DIFF FLAG NO
[2023-11-24 09:04] LABS: Basophils Absolute Auto 0.1 X10*3/uL (0.0-0.2); Basophils Percent Auto 0.8 % (0-2); Eosinophils Absolute Auto 0.5 X10*3/uL (0.0-0.4); Eosinophils Percent Auto 4.1 % (0-4); Hemoglobin 16.2 g/dl (14.0-18.0); Imm Gran Abs Auto 0.13 X10*3/uL (0.00-0.03); Imm Gran Pct Auto 1.1 % (0.0-0.4); Lymphocytes Absolute Auto 2.8 X10*3/uL (1.2-4.9); Lymphocytes Percent Auto 23.5 % (20-40); Mean Corpuscular HGB Conc 34.5 g/dl (31.0-36.0); Mean Corpuscular Hemoglobin 29.6 pg (27.0-33.0); Mean Corpuscular Volume 85.9 fL (80.0-98.0); Mean Platelet Volume 9.5 fL (9.4-12.4); Monocytes Percent Auto 8.4 % (2-11); Neutrophils Absolute Auto 7.5 x10*3/uL (2.0-8.3); Neutrophils Percent Auto 62.1 % (45-73); Platelet Count 251 X10*3/uL (160-400); Red Blood Count 5.47 X10*6/uL (4.60-5.80); Red Cell Distribution Width 13.6 % (11.0-16.0); White Blood Count 12.1 X10*3/uL (4.8-10.8)
[2023-11-24 09:20] LABS: Alanine Aminotransferase 26 U/L (0-40); Albumin Level 4.7 g/dL (3.5-5.0); Alkaline Phosphatase 68 U/L (39-117); Aspartate Amino Transferase 20 U/L (5-37); Bilirubin Total 1.3 mg/dL (0.0-1.0); Blood Urea Nitrogen 19 mg/dL (9-16); Creatinine Clr Calc Pharmacy 75.1; Estimated Glomerular Filt Rate > 60; Glucose Random 163 mg/dL (60-115); Total Protein 7.5 g/dL (6.5-8.0)
[2023-11-24 09:27] VITALS: BP 144/77; PULSE 59; RESP 18; TEMP 36.1; O2SAT 97
[2023-11-24 09:36] LABS: Anion Gap 16 (12-20); Carbon Dioxide 25 mmol/L (22-29); Chloride 105 mmol/L (96-108); Sodium 140 mmol/L (135-145)
--- NOTE | 2023-11-24 10:16 | ECG_ITS ---
Test Reason : HYPERKALEMIA Blood Pressure : / mmHG Vent. Rate : 060 BPM Atrial Rate : 060 BPM P-R Int : 278 ms QRS Dur : 100 ms QT Int : 462 ms P-R-T Axes : 023 -21 043 degrees QTc Int : 462 ms Sinus rhythm with 1st degree A-V block Incomplete right bundle branch block Borderline ECG When compared with ECG of 14-APR-2017 08:54, Incomplete right bundle branch block is now Present Referred By: Aye Hernandez Electronically Signed By:NANCY ROBERT MD
[2023-11-24 10:20] VITALS: BP 116/73; PULSE 60; RESP 18; TEMP 36.6; O2SAT 98
[2023-11-24] MEDS: Albuterol Sulfate 2.5 MG/0.5 ML VIAL.NEB 5 MG INHALE (10:20)
[2023-11-24 10:24] VITALS: PULSE 60; RESP 14; O2SAT 96
[2023-11-24] MEDS: Sodium Zirconium Cyclosilicate 10 GM POWD.PACK PO (10:24)
--- NOTE | 2023-11-24 10:32 | PC.NURSE ---
pt was called by PA to return due to a high K level, discharge was reversed and pt returned to the ED, pt currently a&ox3, vss, compliance monitor sinus richie, RT at bedside doing updraft, this nurse medicated pt to complete potassium shift, ekg performed by tech, pt denies chest pain/sob, call cornelius within reach, will continue to monitor
[2023-11-24 12:07] LABS: Anion Gap 12 (12-20); Blood Urea Nitrogen 19 mg/dL (9-16); Calcium 9.9 mg/dL (8.4-10.2); Carbon Dioxide 28 mmol/L (22-29); Chloride 105 mmol/L (96-108); Creatinine Clr Calc Pharmacy 79.5; Estimated Glomerular Filt Rate > 60; Glucose Random 126 mg/dL (60-115); Sodium 140 mmol/L (135-145)
[2023-11-24 13:48] VITALS: BP 120/68; PULSE 60; RESP 16; TEMP 36.7; O2SAT 98
== END 2023-11-24 13:30 | disposition home or self-care (01) ==
PROVIDERS: Physician Assistant; Emergency Provider Student in an Organized Health Care Education/Training Program; PCP Internal Medicine
DX: L03.312 Cellulitis of back [any part except buttock and flank] (principal); I45.10 Unspecified right bundle-branch block; E87.5 Hyperkalemia; Z79.899 Other long term (current) drug therapy
CPT/HCPCS: 36415; 80048; 80053; 85025; 93005; 94640; 99284; 99285

== ENCOUNTER → 2023-11-24 10:16 | Outpatient (BNV) | payer MEDICARE, MEDICAID, SELFPAY | PROVIDERS: Emergency Provider Student in an Organized Health Care Education/Training Program; PCP Internal Medicine; Visit Provider Internal Medicine Cardiovascular Disease | DX: E87.5 Hyperkalemia (principal) | CPT/HCPCS: 93010 ==

== ENCOUNTER 2024-01-23 16:37 | Inpatient (IN) | payer MEDICARE, MEDICAID, SELFPAY ==
[2024-01-23] VITALS (13 sets, daily range): BP systolic 105–135; BP diastolic 50–74; PULSE 63–110; RESP 13–20; TEMP 36.9–39.7; O2SAT 94–97; BMI 25.6
--- NOTE | ~2024-01-23 | XR_ITS ---
EXAMINATION: XR CHEST CLINICAL INFORMATION: Fever. COMPARISON: 08/04/2016. TECHNIQUE: Frontal view of the chest was obtained. FINDINGS: The cardiomediastinal silhouette is within normal limits and stable. There appears to be atelectatic change and/or scarring at the lung bases. Lungs are otherwise clear. The bony structures and soft tissues are unremarkable. XR/XR chest 1V IMPRESSION: Atelectasis and/or scarring at the lung bases. Lungs are otherwise clear.
--- NOTE | ~2024-01-23 | CT_ITS ---
EXAMINATION: CT ABDOMEN AND PELVIS WITH CONTRAST CLINICAL INFORMATION: vomiting, febrile COMPARISON: 08/30/2016 TECHNIQUE: Multidetector volumetric imaging was performed from the superior aspect of the liver through the pubic symphysis following administration of 85 mL Omnipaque 300 intravenous contrast. Sagittal and coronal reformatted images were obtained on the technologist workstation.. This CT examination was performed using dose optimization techniques as appropriate, variously including the following: *Automated exposure control *Adjustment of mA and/or kV according to patient size (this includes techniques or standardized protocols for targeted exams where dose is matched to indication/reason for exam; i.e. extremities or head) *Use of iterative reconstruction technique DLP: 595 mGy-cm FINDINGS: LUNG BASES: Dependent atelectasis. LIVER, GALLBLADDER, AND BILIARY TREE: Diffuse fatty infiltration of the liver but no focal hepatic lesion nor biliary ductal dilatation. The gallbladder is unremarkable with no evidence of radiopaque gallstones, gallbladder wall thickening, or obvious pericholecystic inflammatory changes. PANCREAS: Unremarkable. SPLEEN: Unremarkable. ADRENAL GLANDS: Unremarkable. KIDNEYS AND URETERS: The kidneys are normal in size, shape, and attenuation. Tiny low-attenuation cyst in the lower pole of the right kidney. No hydronephrosis, hydroureter, or perinephric stranding. No calculi. BLADDER: Decompressed GASTROINTESTINAL TRACT: Scattered redundant colon with colonic diverticulosis but no obvious colonic wall thickening or pericolonic inflammatory change to suggest diverticulitis. Normal-appearing appendix in the right lower quadrant. Visualized small bowel unremarkable. Stomach is decompressed and not well assessed, limiting assessment for wall thickening. But I cannot exclude a mild underlying gastritis with this apparent degree of wall thickening ABDOMINAL WALL: No significant hernia is appreciated. LYMPHOVASCULAR STRUCTURES: Vascular calculation within the aorta iliac system. PELVIC VISCERA: Enlarged OSSEOUS STRUCTURES: Multilevel degenerative changes in the spine. Atrophy of the left leg muscles CT/CT abdomen pelvis w IV con IMPRESSION: Chronic appearing changes as described above.
--- NOTE | 2024-01-23 16:59 | ECG_ITS ---
Test Reason : ABD PAIN Blood Pressure : / mmHG Vent. Rate : 095 BPM Atrial Rate : 095 BPM P-R Int : 254 ms QRS Dur : 092 ms QT Int : 364 ms P-R-T Axes : 001 -21 042 degrees QTc Int : 457 ms Sinus rhythm with 1st degree A-V block Otherwise normal ECG When compared with ECG of 24-NOV-2023 13:25, Vent. rate has increased BY 40 BPM Referred By: Josie Marie Electronically Signed By:NANCY ROBERT MD
--- NOTE | 2024-01-23 17:03 | ED_ITS ---
HPI - General Adult General Chief complaint: General Medical Stated complaint: sudden onset vertigo, nausea, hx diabetes Time Seen by Provider: 01/23/24 17:29 Source: patient and EMS Mode of arrival: EMS Limitations: no limitations History of Present Illness HPI narrative: Patient is a 78-year-old male who presents to the emergency department via EMS. He reports that he was at his daughter's house today and he asked his daughter's boyfriend to call EMS. He reports approximately 1 hour prior to arrival he had sudden onset of feeling dizziness chills and began vomiting. He states this has occurred in the past when he has suffered from vertigo. He denies feeling unwell recently. Denies associated headache, vision changes, neck pain, chest pain, shortness of breath, abdominal pain, diarrhea, constipation, genitourinary symptoms, numbness or tingling of his extremities. He does admit that he had his shingles vaccination yesterday, reports with the first vaccination he had no side effects. Related Data Home Medications ?Medication ?Instructions ?Recorded ?Confirmed ascorbic acid (vitamin C) 1,000 mg 1,000 mg PO DAILY 01/24/24 01/24/24 tablet (Vitamin C) aspirin 81 mg tablet,delayed 81 mg PO DAILY 01/24/24 01/24/24 release cyanocobalamin (vitamin B-12) 2,500 mcg sublingual DAILY 01/24/24 01/24/24 2,500 mcg sublingual tablet (Vitamin B-12) levothyroxine 100 mcg tablet 100 mcg PO DAILY@0600 01/24/24 01/24/24 metformin 500 mg tablet,extended 500 mg PO BEDTIME 01/24/24 01/24/24 release 24 hr omega [id number] oil 1,200 mg 1 cap PO DAILY 01/24/24 01/24/24 (144 mg-216 mg) capsule (Fish Oil) Previous Rx's ?Medication ?Instructions ?Recorded amlodipine 5 mg tablet 5 mg PO DAILY #90 tabs 05/18/22 meclizine 25 mg tablet 25 mg PO BID PRN dizziness #60 tabs 05/18/22 pantoprazole 40 mg tablet,delayed 40 mg PO DAILY #90 tabs 05/18/22 release atorvastatin 40 mg tablet 40 mg PO DAILY #90 tabs 09/23/22 atenolol 50 mg tablet 50 mg PO DAILY #90 tabs 11/03/22 Allergies Allergy/AdvReac Type Severity Reaction Status Date / Time morphine [MORPHINE] Allergy Mild NAUSEA Verified 01/23/24 17:01 tramadol [Ultracet] Allergy Unknown Nausea Verified 11/24/23 08:21 Penicillins [PENICILLINS] AdvReac Mild NAUSEA & Verified 11/24/23 08:21 VOMITING oxycodone [OXYCODONE] AdvReac Unknown NAUSEA Verified 11/24/23 08:21 SEAFOOD Allergy Unknown NAUSEA & Uncoded 11/24/23 08:21 VOMITING shellfish Allergy Unknown anaphylaxis Uncoded 11/24/23 08:21 Codeine Sulfate AdvReac Unknown Nausea Uncoded 11/24/23 08:21 Review of Systems 2 Review of Systems: Yes all other systems are reviewed and are negative PMFSH Past Medical History Attestation statement: The following information was validated with the patient. 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 Osteoarthritis Pancreatic divisum Acquired hypothyroidism Thoracic aortic aneurysm Above knee amputation of left lower extremity Vertigo History of esophagitis GERD (gastroesophageal reflux disease) Hypercholesteremia Surgical History H/O removal of cyst History of hand surgery History of total right knee replacement (TKR) History of carpal tunnel surgery of right wrist History of carpal tunnel surgery of left wrist Family History Family History Father Lung cancer Daughter Breast cancer Mother Breast cancer Social History Social History Housing: House Alcohol intake: never Patient Tobacco Use Status: Never used Tobacco Smoked in Last 30 Days: No e-Cigarette/Vaping Use: Never Used Second Hand Smoke Exposure: No Use of substances other than those prescribed or required for medical reasons: No Advance Directives: No Advance Directives Information Provided: No Advance Directives Date on File: 06/21/09 Nutrition Risks: No Nutritional Risk service: No Current occupational status: employed and retired Cognitive needs: No Hearing needs: No Vision needs: No Physical Exam ED Vital Signs: Vital Signs - 24 hr 01/23/24 16:55 01/23/24 17:06 01/23/24 18:34 Temperature 100.4 F 103.4 F H 99.4 F Pulse Rate 99 83 Respiratory Rate 20 20 Blood Pressure 124/74 125/68 Pulse Oximetry 96 97 Oxygen Delivery Method Room Air Room Air 01/23/24 18:46 01/23/24 19:04 01/23/24 19:07 Temperature 99.4 F 98.9 F 98.6 F Pulse Rate 82 80 78 Respiratory Rate 13 19 17 Blood Pressure 105/50 L 120/65 120/65 Pulse Oximetry 95 94 94 Oxygen Delivery Method Room Air Room Air Room Air 01/23/24 20:05 01/23/24 21:58 01/23/24 22:01 Temperature 99.0 F Pulse Rate 76 63 70 Respiratory Rate 17 Blood Pressure 122/68 119/62 121/65 Pulse Oximetry 95 Oxygen Delivery Method Room Air 01/23/24 22:02 01/23/24 22:17 01/23/24 22:39 Temperature 98.5 F Pulse Rate 71 66 80 Respiratory Rate 17 Blood Pressure 135/57 L 107/62 120/71 Pulse Oximetry 94 Oxygen Delivery Method Room Air 01/24/24 00:46 Temperature 98.5 F Pulse Rate 74 Respiratory Rate 20 Blood Pressure 124/98 H Pulse Oximetry 95 Oxygen Delivery Method Room Air BMI result Body Mass Index 25.6 Appearance: Alert.?Oriented to person, place and time. No acute distress.?Normal affect. Eyes: Pupils equal, round and reactive to light.? ENT: Pharynx normal.?? Neck: Normal inspection.? Neck supple.?? CVS: Heart sounds normal. Normal heart rate and rhythm.? Pulses normal.?? Respiratory: No respiratory distress.? Lung sounds clear to auscultation bilaterally?? Abdomen: Soft with tenderness upon palpation in the upper quadrants. Normoactive bowel sounds. Skin: Skin warm and dry.? Normal skin color.? Left posterior back scapular region with 0.5 cm raised irregular lesion with bleeding upon manipulation Extremities: No lower extremity edema.? No calf ttp? Neuro: Moves all extremities spontaneously. Sensation intact bilaterally. CN II- XII intact. No focal neuro deficits. Ambulates with normal steady gait. Course Reevaluation(s) Reevaluation #1: CBC reveals leukocytosis of 13,600 with left shift, non-anion gap hyperglycemia of 200, no NATHEN, lactic acid of 3.3 (possibly be lactic acidosis with metformin usage), elevated T bili 1.2 LFTs otherwise normal (has had prior elevated T bili in the past), lipase within normal range. Time: 18:02 Reevaluation #2: CT of the abdomen and pelvis with out acute pathology, stomach is decompressed and not well assessed limiting assessment for wall thickening, can not completely exclude gastritis. On evaluation of CT prostate appears enlarged, on digital rectal examination is enlarged upon palpation. Case Discussed with ed attending Dr. Bishop, agrees with plan of care for admission, will cover additionally with Levaquin due to concern for prostatitis. Time: 00:26 Reevaluation #3: Spoke with hospitalist, Dr. Javier Chacon who accepts patient for admission to medicine service Time: 01:54 Medications Administered Generic Name Dose Route Start Last Admin Trade Name Freq PRN Reason Stop Dose Admin Heparin Sodium (Porcine) 5,000 unit 01/24/24 09:00 01/24/24 08:04 Heparin Sodium,Porcine 5,000 Unit/Ml Vial SUBCUT 5,000 unit Q12H VENKATA Administration Sodium Chloride 1,000 mls @ 100 mls/hr 01/24/24 02:30 01/24/24 13:13 Ns IVCONT 100 mls/hr .Q10H VENKATA Administration Meclizine HCl 25 mg 01/24/24 08:00 01/24/24 08:04 Meclizine Hcl 25 Mg Tablet PO 25 mg BID VENKATA Administration Sodium Chloride 3 ml 01/24/24 08:00 01/24/24 13:13 0.9 % Sodium Chloride Flush 3 Ml Syringe IVFLUSH Not Given QSHIFT VENKATA Discontinued Medications Generic Name Dose Route Start Last Admin Trade Name Freq PRN Reason Stop Dose Admin Acetaminophen 975 mg 01/23/24 17:06 01/23/24 17:30 Acetaminophen 325 Mg Tablet PO 01/23/24 17:07 975 mg ONCE ONE Administration Atorvastatin Calcium 40 mg 01/24/24 02:28 01/24/24 03:12 Atorvastatin Calcium 40 Mg Tablet PO 01/24/24 02:29 40 mg ONCE ONE Administration Sodium Chloride 1,000 mls @ 999 mls/hr 01/23/24 17:15 01/23/24 18:33 Ns IV 01/23/24 18:15 Infused .Q1H1M VENKATA Infusion Ceftriaxone Sodium 1 gm/ 50 mls @ 100 mls/hr 01/23/24 17:10 01/23/24 18:10 Sodium Chloride IV 01/23/24 17:39 Infused ONCE ONE Infusion Levofloxacin 500 mg in 100 mls @ 100 mls/hr 01/24/24 00:39 01/24/24 01:50 Levaquin IV 01/24/24 01:38 Infused ONCE ONE Infusion Sodium Chloride 1,000 mls @ 999 mls/hr 01/24/24 02:27 01/24/24 04:39 Ns IV 01/24/24 03:27 Infused .Q1H1M STA Infusion Vancomycin HCl 2,000 mg in 500 mls @ 250 mls/hr 01/24/24 05:30 01/24/24 08:43 Vancomycin/Ns IV 01/24/24 07:29 Infused ONCE ONE Infusion Protocol Levothyroxine Sodium 112 mcg 01/24/24 02:28 01/24/24 03:12 Levothyroxine Sodium 112 Mcg Tablet PO 01/24/24 02:29 112 mcg ONCE ONE Administration Meclizine HCl 25 mg 01/24/24 02:28 01/24/24 03:12 Meclizine Hcl 25 Mg Tablet PO 01/24/24 02:29 25 mg ONCE ONE Administration Ondansetron HCl 4 mg 01/23/24 16:58 01/23/24 17:34 Ondansetron Hcl 4 Mg/2 Ml Vial IVPUSH 01/23/24 16:59 4 mg ONCE ONE Administration Medical Decision Making Medical Decision Making MDM Narrative: Patient is a 78-year-old male with past medical history of type 2 diabetes, esophagitis, BPH, left lower extremity [id number] amputation, osteoarthritis, ascending aorta enlargement, GERD, hypercholesterolemia, vertigo, pancreatic divisum, acquired hypothyroidism who presents emergency department for evaluation of sudden onset vomiting dizziness and chills. He arrived to the department febrile 103.4 rectally and mildly tachycardic. 17:06 - sepsis alert called --> patient will receive acetaminophen for fever, normal saline 1 L IV, pending lactic acid for evaluation of severe sepsis, not hypotensive, at this time would defer 30 mL/kg fluid bolus unless necessary, will cover with Rocephin. He has a skin lesion to his left posterior shoulder, he is awaiting appointment with Dermatology in March, does not have surrounding skin changes to suggest acute cellulitis. Abdominal examination is overall benign, mild tenderness in the upper quadrants, given abrupt onset of symptoms fever, will obtain CT of the abdomen and pelvis. Concern at this time for infectious etiology versus systemic adverse reaction to shingles vaccination. Differential Diagnosis Differential Diagnoses: The differential diagnosis associated with the presentation includes (Gastroenteritis, cholecystitis, pancreatitis, viral syndrome, vertigo, systemic adverse reaction to shingles vaccination) Admission/Observation Consideration of admission/observation: Escalation of care including admission/observation considered Lab Data MDM Lab Attestation statement: I reviewed the patient's lab results. 01/24/24 05:01 01/24/24 05:01 Labs: Lab Results 01/23/24 01/23/24 01/23/24 Range/Units 17:19 17:20 17:21 WBC 13.6 H (4.8-10.8) X10*3/uL RBC 5.04 (4.60-5.80) X10*6/uL Hgb 15.0 (14.0-18.0) g/dl Hct 42.3 (42.0-52.0) % MCV 83.9 (80.0-98.0) fL MCH 29.8 (27.0-33.0) pg MCHC 35.5 (31.0-36.0) g/dl RDW 13.2 (11.0-16.0) % Plt Count 210 (160-400) X10*3/uL MPV 9.6 (9.4-12.4) fL Immature Gran % (Auto) 1.3 H (0.0-0.4) % Neut % (Auto) 81.4 H (45-73) % Lymph % (Auto) 7.7 L (20-40) % [place] % (Auto) 8.5 (2-11) % Eos % (Auto) 0.7 (0-4) % Baso % (Auto) 0.4 (0-2) % Lymph # (Auto) 1.1 L (1.2-4.9) X10*3/uL [place] # (Auto) 1.2 (0.1-1.2) X10*3/uL Eos # (Auto) 0.1 (0.0-0.4) X10*3/uL Baso # (Auto) 0.1 (0.0-0.2) X10*3/uL Abs Immat Gran (auto) 0.18 H (0.00-0.03) X10*3/uL Absolute Neuts (auto) 11.1 H (2.0-8.3) x10*3/uL Absolute Nucleated RBC 0.000 (0.0-0.012) X10*3/uL Nucleated RBC % (auto) 0.0 (0.0-0.2) /100WBC PT 12.5 (11.1-13.3) SEC INR 1.0 (0.9-1.1) Sodium 134 L (135-145) mmol/L Potassium 4.0 (3.3-5.1) mmol/L Chloride 101 (96-108) mmol/L Carbon Dioxide 22 (22-29) mmol/L Anion Gap 15 (12-20) BUN 17 H (9-16) mg/dL Creatinine 0.94 (0.5-1.4) mg/dL Estim Creat Clear Calc 73.3 Estimated GFR > 60 Random Glucose 200 H (60-115) mg/dL Lactic Acid 3.3 H* (0.5-2.0) mmol/L Lactic Acid F/U @ 2Hr (0.5-2.0) mmol/L Lactic Acid F/U @ 4Hr (0.5-2.0) mmol/L Calcium 9.5 (8.4-10.2) mg/dL Magnesium 1.8 (1.6-2.6) mg/dL Total Bilirubin 1.2 H (0.0-1.0) mg/dL AST 19 (5-37) U/L ALT 25 (0-40) U/L Alkaline Phosphatase 63 (39-117) U/L Troponin I High Sens < 2.7 (<3.5-35.0) ng/L B-Natriuretic Peptide 24 (<100) pg/mL Total Protein 6.8 (6.5-8.0) g/dL Albumin 4.1 (3.5-5.0) g/dL Lipase 17 (8-78) U/L Urine Color Urine Appearance Urine pH (5.0-9.0) Ur Specific [place] (1.005-1.025) Urine Protein (Neg-Trace) mg/dL Urine Glucose (UA) (Negative) mg/dL Urine Ketones (Negative) mg/dL Urine Blood (Negative) Urine Nitrite (Negative) Ur Leukocyte Esterase (Negative) Urine RBC (0-2) /HPF Urine WBC (0-5) /HPF Ur Squamous Epith Cells (0-2) /HPF Urine Bacteria (None Seen) Hyaline Casts (0-2) /LPF Influenza Type A (PCR) NEGATIVE (Negative) Influenza Type B (PCR) NEGATIVE (Negative) RSV RNA Qual (PCR) NEGATIVE (Negative) SARS-CoV-2 RNA (RT-PCR) NEGATIVE (Negative) 01/23/24 01/23/24 01/23/24 Range/Units 19:49 21:43 22:12 WBC (4.8-10.8) X10*3/uL RBC (4.60-5.80) X10*6/uL Hgb (14.0-18.0) g/dl Hct (42.0-52.0) % MCV (80.0-98.0) fL MCH (27.0-33.0) pg MCHC (31.0-36.0) g/dl RDW (11.0-16.0) % Plt Count (160-400) X10*3/uL MPV (9.4-12.4) fL Immature Gran % (Auto) (0.0-0.4) % Neut % (Auto) (45-73) % Lymph % (Auto) (20-40) % Robeson % (Auto) (2-11) % Eos % (Auto) (0-4) % Baso % (Auto) (0-2) % Lymph # (Auto) (1.2-4.9) X10*3/uL [place] # (Auto) (0.1-1.2) X10*3/uL Eos # (Auto) (0.0-0.4) X10*3/uL Baso # (Auto) (0.0-0.2) X10*3/uL Abs Immat Gran (auto) (0.00-0.03) X10*3/uL Absolute Neuts (auto) (2.0-8.3) x10*3/uL Absolute Nucleated RBC (0.0-0.012) X10*3/uL Nucleated RBC % (auto) (0.0-0.2) /100WBC PT (11.1-13.3) SEC INR (0.9-1.1) Sodium (135-145) mmol/L Potassium (3.3-5.1) mmol/L Chloride (96-108) mmol/L Carbon Dioxide (22-29) mmol/L Anion Gap (12-20) BUN (9-16) mg/dL Creatinine (0.5-1.4) mg/dL Estim Creat Clear Calc Estimated GFR Random Glucose (60-115) mg/dL Lactic Acid (0.5-2.0) mmol/L Lactic Acid F/U @ 2Hr 2.5 H* (0.5-2.0) mmol/L Lactic Acid F/U @ 4Hr 2.4 H* (0.5-2.0) mmol/L Calcium (8.4-10.2) mg/dL Magnesium (1.6-2.6) mg/dL Total Bilirubin (0.0-1.0) mg/dL AST (5-37) U/L ALT (0-40) U/L Alkaline Phosphatase (39-117) U/L Troponin I High Sens (<3.5-35.0) ng/L B-Natriuretic Peptide (<100) pg/mL Total Protein (6.5-8.0) g/dL Albumin (3.5-5.0) g/dL Lipase (8-78) U/L Urine Color Yellow Urine Appearance Clear Urine pH 5.5 (5.0-9.0) Ur Specific [place] 1.025 (1.005-1.025) Urine Protein 30 (1+) H (Neg-Trace) mg/dL Urine Glucose (UA) 250 H (Negative) mg/dL Urine Ketones 15 (Negative) mg/dL Urine Blood Negative (Negative) Urine Nitrite Negative (Negative) Ur Leukocyte Esterase Trace H (Negative) Urine RBC 0-2 (0-2) /HPF Urine WBC 0-5 (0-5) /HPF Ur Squamous Epith Cells 0-2 (0-2) /HPF Urine Bacteria None Seen (None Seen) Hyaline Casts 0-2 (0-2) /LPF Influenza Type A (PCR) (Negative) Influenza Type B (PCR) (Negative) RSV RNA Qual (PCR) (Negative) SARS-CoV-2 RNA (RT-PCR) (Negative) Independent Interpretation I performed an independent interpretation of an: EKG Interpretation: Rate: 95 Rhythm:? First-degree AV block Normal P waves.? Prolonged TIANNA; 254 MS Normal QRS complex.?? ST T wave :??No ST elevation, no ST depression, no T-wave inversion qTC: 457 prior studies:? November of 2023 The study has been interpreted contemporaneously by me. Radiology Impression Discussion of test interpretation with radiology: I have reviewed the radiologist's reading. Independent Historian Clinical information obtained from an independent historian. History obtained from or confirmed by: EMS External Record Review External record reviewed: Outpatient record Discharge Plan Discharge Clinical Impression: SIRS (systemic inflammatory response syndrome) Vaccine reaction Qualifiers: Encounter type: initial encounter Qualified Code(s): T50.Z95A - Adverse effect of other vaccines and biological substances, initial encounter Patient Disposition: Admitted As Inpatient
[2024-01-23 17:25] LABS: MANUAL DIFF FLAG NO
[2024-01-23 17:26] LABS: Basophils Absolute Auto 0.1 X10*3/uL (0.0-0.2); Basophils Percent Auto 0.4 % (0-2); Eosinophils Absolute Auto 0.1 X10*3/uL (0.0-0.4); Eosinophils Percent Auto 0.7 % (0-4); Hematocrit 42.3 % (42.0-52.0); Imm Gran Abs Auto 0.18 X10*3/uL (0.00-0.03); Imm Gran Pct Auto 1.3 % (0.0-0.4); Lymphocytes Absolute Auto 1.1 X10*3/uL (1.2-4.9); Lymphocytes Percent Auto 7.7 % (20-40); Mean Corpuscular HGB Conc 35.5 g/dl (31.0-36.0); Mean Corpuscular Hemoglobin 29.8 pg (27.0-33.0); Mean Corpuscular Volume 83.9 fL (80.0-98.0); Mean Platelet Volume 9.6 fL (9.4-12.4); Monocytes Absolute Auto 1.2 X10*3/uL (0.1-1.2); Monocytes Percent Auto 8.5 % (2-11); Neutrophils Absolute Auto 11.1 x10*3/uL (2.0-8.3); Neutrophils Percent Auto 81.4 % (45-73); Platelet Count 210 X10*3/uL (160-400); Red Blood Count 5.04 X10*6/uL (4.60-5.80); Red Cell Distribution Width 13.2 % (11.0-16.0); White Blood Count 13.6 X10*3/uL (4.8-10.8)
[2024-01-23] MEDS: Acetaminophen 325 MG TABLET 975 MG PO (17:30)
[2024-01-23] MEDS: cefTRIAXone sodium 1 GM in 0.9 % Sodium Chloride 50 ML IV (17:32)
[2024-01-23] MEDS: 0.9 % Sodium Chloride 1,000 ML 999 ML IV (17:33)
[2024-01-23] MEDS: ondansetron HCL 4 MG/2 ML VIAL IVPUSH (17:34)
[2024-01-23 17:40] LABS: Alanine Aminotransferase 25 U/L (0-40); Albumin Level 4.1 g/dL (3.5-5.0); Alkaline Phosphatase 63 U/L (39-117); Anion Gap 15 (12-20); Aspartate Amino Transferase 19 U/L (5-37); Bilirubin Total 1.2 mg/dL (0.0-1.0); Blood Urea Nitrogen 17 mg/dL (9-16); Calcium 9.5 mg/dL (8.4-10.2); Carbon Dioxide 22 mmol/L (22-29); Chloride 101 mmol/L (96-108); Creatinine Clr Calc Pharmacy 73.3; Estimated Glomerular Filt Rate > 60; Glucose Random 200 mg/dL (60-115); Lipase 17 U/L (8-78); Magnesium 1.8 mg/dL (1.6-2.6); Prothrombin Time 12.5 SEC (11.1-13.3); Sodium 134 mmol/L (135-145); Total Protein 6.8 g/dL (6.5-8.0)
--- NOTE | 2024-01-23 17:41 | PC.NURSE ---
Pt presents to ED via EMS from home, reports sudden onset of dizziness, nausea, vomiting and chills. Reports shingles shot yesterday, denies any other changes or illnesses. Denies CP, SOB or any pain. Alert and oriented, breathing even and unlabored, skin hot and dry. Rectal temp 103.4 F. Provider alerted and sepsis protocol in place.
--- NOTE | 2024-01-23 17:46 | PC.NURSE ---
Per provider start ABX instead of waiting for urine sample, pt does not have to urinate
[2024-01-23 17:49] LABS: Troponin-I High Sensitivity < 2.7 ng/L (<3.5-35.0)
[2024-01-23 17:50] LABS: Lactic Acid 3.3 mmol/L (0.5-2.0)
[2024-01-23 18:15] LABS: Influenza A PCR NEGATIVE (Negative); Influenza B PCR NEGATIVE (Negative); Resp Syncy Virus RNA Qual PCR NEGATIVE (Negative); SARS COV2 PCR INHOUSE NEGATIVE (Negative)
[2024-01-23 18:18] LABS: B Type Natriuretic Peptide 24 pg/mL (<100)
[2024-01-23 19:23] LABS: Reflex Lactate? Lactic Acid Added
[2024-01-23 20:14] LABS: ~Lactic Acid-LAB USE ONLY 2.5 mmol/L (0.5-2.0)
[2024-01-23 21:52] LABS: Appearance Urine Clear; Color Urine Yellow; Glucose Urine UA 250 mg/dL (Negative); Leukocyte Esterase Urine Trace (Negative); Nitrite Urine Negative (Negative); PH 5.5 (5.0-9.0); Specific Gravity - Urine 1.025 (1.005-1.025); UMIC TRIGGER UACC YES; Urine Blood Negative (Negative); Urine Ketones 15 mg/dL (Negative); Urine Protein 30 (1+) mg/dL (Neg-Trace)
[2024-01-23 21:53] LABS: Reflex Lactate? 2 Y
[2024-01-23 22:31] LABS: ~Lactic Acid-LAB USE ONLY 2.4 mmol/L (0.5-2.0)
[2024-01-23 22:57] LABS: Bacteria Urine None Seen (None Seen); Hyaline Casts Urine 0-2 /LPF (0-2); RBC Urine 0-2 /HPF (0-2); Squamous Epithelial Cell Urine 0-2 /HPF (0-2); WBC Urine 0-5 /HPF (0-5)
[2024-01-24 00:46] VITALS: BP 124/98; PULSE 74; RESP 20; TEMP 36.9; O2SAT 95
[2024-01-24] MEDS: levoFLOXacin/D5W 500 MG/100 ML PIGGYBACK 100 MG IV (00:50)
--- NOTE | 2024-01-24 02:33 | PM.IMHP ---
History of Present Illness Date of Service: 01/24/24 Attending physician on admission: Nette Chacon Chief Complaint: Vertigo Lazaro Dotson is a very pleasant 78 years old man with past medical history significant for vertigo, hypothyroidism, type 2 diabetes mellitus on metformin, GERD, hyperlipidemia and hypertension presents to the emergency department complaining of dizziness/vertigo like associated with nausea, vomiting and chills. He denies headache, nasal congestion, sore throat, ear pain, abdominal pain, diarrhea or any acute urinary symptoms. Last Tuesday, he received the shingles vaccination. He showed me a lesion that he has in his left upper back/posterior shoulder area that he has had for the last couple of months. In the ED, he was found to have normal vital signs except for elevated temperature of 103.4 degrees. Blood workup was remarkable for leukocytosis of 13.6. Hemoglobin platelets are normal. Glucose is 200. Initial lactic acid was 3.3 (most recent is 2.4). There are no electrolyte imbalances. LFTs are basically normal except for slight elevation of bilirubin, 1.2. BNP, troponin and lipase are normal. UA showed no findings consistent with UTI. Abdomen pelvis CT scan showed no acute pathology. ED tx: Levofloxacin 500 mg IV X1. Review of Systems Review of Systems: All 12 systems were reviewed and normal except as noted in HPI. [facility] Medical History (Updated 01/24/24 @ 03:00 by Nette Chacon MD) Type 2 diabetes mellitus without complication, without long-term current use of insulin First degree heart block by electrocardiogram Essential hypertension Benign prostatic hyperplasia Below-knee amputation of left lower extremity Ascending aorta enlargement Osteoarthritis Pancreatic divisum Acquired hypothyroidism Thoracic aortic aneurysm Above knee amputation of left lower extremity Vertigo History of esophagitis GERD (gastroesophageal reflux disease) Hypercholesteremia Family History Father Lung cancer Daughter Breast cancer Mother Breast cancer Surgical History H/O removal of cyst History of hand surgery History of total right knee replacement (TKR) History of carpal tunnel surgery of right wrist History of carpal tunnel surgery of left wrist Social History Housing: House Alcohol intake: never Patient Tobacco Use Status: Never used Tobacco Smoked in Last 30 Days: No e-Cigarette/Vaping Use: Never Used Second Hand Smoke Exposure: No Use of substances other than those prescribed or required for medical reasons: No Advance Directives: No Advance Directives Information Provided: No Advance Directives Date on File: 06/21/09 service: No Current occupational status: employed and retired Cognitive needs: No Hearing needs: No Vision needs: No Meds Allergies Allergy/AdvReac Type Severity Reaction Status Date / Time morphine [MORPHINE] Allergy Mild NAUSEA Verified 01/23/24 17:01 tramadol [Ultracet] Allergy Unknown Nausea Verified 11/24/23 08:21 Penicillins [PENICILLINS] AdvReac Mild NAUSEA & Verified 11/24/23 08:21 VOMITING oxycodone [OXYCODONE] AdvReac Unknown NAUSEA Verified 11/24/23 08:21 SEAFOOD Allergy Unknown NAUSEA & Uncoded 11/24/23 08:21 VOMITING shellfish Allergy Unknown anaphylaxis Uncoded 11/24/23 08:21 Codeine Sulfate AdvReac Unknown Nausea Uncoded 11/24/23 08:21 Active Medications: Current Medications Acetaminophen (Acetaminophen 325 Mg Tablet) 975 mg PO Q6H PRN PRN Reason: Pain, Mild (Pain Scale 1-3), fever or headache Heparin Sodium (Porcine) (Heparin Sodium,Porcine 5,000 Unit/Ml Vial) 5,000 unit SUBCUT Q12H [facility] Sodium Chloride (Ns) 1,000 mls @ 999 mls/hr IV .Q1H1M STA Stop: 01/24/24 03:27 Sodium Chloride (Ns) 1,000 mls @ 100 mls/hr IVCONT .Q10H [facility] Melatonin (Melatonin 3 Mg Tablet) 6 mg PO BEDTIME PRN PRN Reason: Insomnia Ondansetron HCl (Ondansetron Hcl 4 Mg/2 Ml Vial) 4 mg IVPUSH Q4H PRN PRN Reason: Nausea and Vomiting Sodium Chloride (0.9 % Sodium Chloride Flush 3 Ml Syringe) 3 ml IVFLUSH QSHIFT [facility] Home Medications ?Medication ?Instructions ?Recorded ?Confirmed ?Last Taken ?Type Aspirin Low Dose 81 mg PO DAILY 04/17/20 12/07/21 04/15/20 History Fish Oil 1 cap PO DAILY 04/17/20 12/07/21 04/15/20 History Vitamin C 1 cap PO DAILY 04/17/20 12/07/21 04/13/20 09:00 History vitamin B complex 1 cap PO DAILY 04/17/20 12/07/21 04/13/20 09:00 History Physical Exam Vital Signs and Narrative: Vital Signs: Last Vital Signs Temp 98.5 F 01/24/24 00:46 Pulse 74 01/24/24 00:46 Resp 20 01/24/24 00:46 BP 124/98 H 01/24/24 00:46 Pulse Ox 95 01/24/24 00:46 O2 Del Method Room Air 01/24/24 00:46 BMI result Body Mass Index 25.6 Constitutional - Awake and Alert, No apparent distress. Febrile. Cooperative. Pleasant. Hard of hearing. HEENT - PERRL, EOMI. Normal sclerae. Normal tympanic membranes. Heart - S1S2, RRR, No murmurs. Lungs - Normal lung expansion, Normal respiratory effort, No respiratory distress, CTA bilaterally Abdomen - NT / ND; +BS; No rebound or guarding - No CVA tenderness Extremities - no calf tenderness bilaterally, no swelling Musculoskeletal - Normal inspection, normal ROM Skin - Warm/Dry/. Left upper back/posterior aspect of left shoulder: Neurological - Alert & oriented x3. No focal weakness grossly noted. Psychological - Appropriate affect Results Labs 01/23/24 17:20 01/23/24 17:19 Labs: Laboratory Results - last 24 hr 01/23/24 01/23/24 01/23/24 17:19 17:20 17:21 MCV 83.9 MCH 29.8 MCHC 35.5 RDW 13.2 Plt Count 210 MPV 9.6 Immature Gran % (Auto) 1.3 H Neut % (Auto) 81.4 H Lymph % (Auto) 7.7 L [place] % (Auto) 8.5 Eos % (Auto) 0.7 Baso % (Auto) 0.4 Lymph # (Auto) 1.1 L [place] # (Auto) 1.2 Eos # (Auto) 0.1 Baso # (Auto) 0.1 Abs Immat Gran (auto) 0.18 H Absolute Neuts (auto) 11.1 H Absolute Nucleated RBC 0.000 Nucleated RBC % (auto) 0.0 PT 12.5 INR 1.0 Anion Gap 15 Estim Creat Clear Calc 73.3 Estimated GFR > 60 Random Glucose 200 H Lactic Acid 3.3 H* Lactic Acid F/U @ 2Hr Lactic Acid F/U @ 4Hr Calcium 9.5 Magnesium 1.8 Total Bilirubin 1.2 H AST 19 ALT 25 Alkaline Phosphatase 63 Troponin I High Sens < 2.7 B-Natriuretic Peptide 24 Total Protein 6.8 Albumin 4.1 Lipase 17 Urine Color Urine Appearance Urine pH Ur Specific [place] Urine Protein Urine Glucose (UA) Urine Ketones Urine Blood Urine Nitrite Ur Leukocyte Esterase Urine RBC Urine WBC Ur Squamous Epith Cells Urine Bacteria Hyaline Casts Influenza Type A (PCR) NEGATIVE Influenza Type B (PCR) NEGATIVE RSV RNA Qual (PCR) NEGATIVE SARS-CoV-2 RNA (RT-PCR) NEGATIVE 01/23/24 01/23/24 01/23/24 19:49 21:43 22:12 MCV MCH MCHC RDW Plt Count MPV Immature Gran % (Auto) Neut % (Auto) Lymph % (Auto) [place] % (Auto) Eos % (Auto) Baso % (Auto) Lymph # (Auto) [place] # (Auto) Eos # (Auto) Baso # (Auto) Abs Immat Gran (auto) Absolute Neuts (auto) Absolute Nucleated RBC Nucleated RBC % (auto) PT INR Anion Gap Estim Creat Clear Calc Estimated GFR Random Glucose Lactic Acid Lactic Acid F/U @ 2Hr 2.5 H* Lactic Acid F/U @ 4Hr 2.4 H* Calcium Magnesium Total Bilirubin AST ALT Alkaline Phosphatase Troponin I High Sens B-Natriuretic Peptide Total Protein Albumin Lipase Urine Color Yellow Urine Appearance Clear Urine pH 5.5 Ur Specific [place] 1.025 Urine Protein 30 (1+) H Urine Glucose (UA) 250 H Urine Ketones 15 Urine Blood Negative Urine Nitrite Negative Ur Leukocyte Esterase Trace H Urine RBC 0-2 Urine WBC 0-5 Ur Squamous Epith Cells 0-2 Urine Bacteria None Seen Hyaline Casts 0-2 Influenza Type A (PCR) Influenza Type B (PCR) RSV RNA Qual (PCR) SARS-CoV-2 RNA (RT-PCR) Imaging Radiologist's Impressions: Impressions Abdomen/Pelvis CT 01/23/24 21:13 IMPRESSION: Chronic appearing changes as described above. Assessment and Plan (1) Vaccine reaction: Qualifiers: Encounter type: initial encounter Qualified Code(s): T50.Z95A - Adverse effect of other vaccines and biological substances, initial encounter Status: Acute (2) Fever: Qualifiers: Fever type: post-vaccination Qualified Code(s): R50.83 - Postvaccination fever Status: Acute (3) Vertigo: Status: Acute Plan Lazaro Dotson is a 78 y/o man admitted with: Fever, vertigo, nausea and vomiting. No headache, sore throat, ear pain or confusion. Likely reaction to shingles vaccination. Will continue symptomatic therapy with Zofran, Antivert and Tylenol. Check chest x-ray. Blood cultures were obtained in the ED -will follow results. Lactic acidosis, likely secondary to metformin use. Hold metformin. Continue IV fluids. Continue to monitor lactic acidosis. SIRS criteria, but no sepsis. Type 2 diabetes mellitus. Blood glucose check before meals at bedtime. Continue IV fluids. Insulin sliding scale. Metformin on hold due to lactic acidosis. Hypothyroidism. Continue levothyroxine. GERD. Continue pantoprazole. Hyperlipidemia. Continue statin. Essential hypertension. Continue atenolol and amlodipine. Left upper back skin lesion. Follow as an outpatient with Dermatology for biopsy. DVT prophylaxis: Heparin Code status: Full Patient will need hospitalization for at least 2 midnights for symptomatic therapy for shingles vaccination reaction as well as further investigation with blood cultures, CXR and serial lactic acid level. Quality Stroke Does the patient have a stroke diagnosis?: No VTE Prior VTE?: No VTE Risk Level:: Medical - moderate - high VTE Device Contraindication: Treatment Not Indicated VTE Drug Contraindication: N/A - Med Ordered
[2024-01-24] MEDS: 0.9 % Sodium Chloride 1,000 ML 999 ML IV (03:12)
[2024-01-24] MEDS: Meclizine HCl 25 MG TABLET PO ×3 (03:12→20:36)
[2024-01-24] MEDS: Levothyroxine Sodium 112 MCG TABLET PO (03:12)
[2024-01-24] MEDS: 0.9 % Sodium Chloride 1,000 ML 100 ML IVCONT ×2 (03:12→13:13)
[2024-01-24] MEDS: Atorvastatin Calcium 40 MG TABLET PO (03:12)
[2024-01-24 05:09] VITALS: BP 133/68; PULSE 82; RESP 17; TEMP 36.9; O2SAT 94
[2024-01-24 05:28] LABS: MANUAL DIFF FLAG NO
[2024-01-24 05:30] LABS: Basophils Percent Auto 0.3 % (0-2); Eosinophils Percent Auto 0.1 % (0-4); Hematocrit 40.3 % (42.0-52.0); Hemoglobin 14.1 g/dl (14.0-18.0); Imm Gran Abs Auto 0.13 X10*3/uL (0.00-0.03); Imm Gran Pct Auto 1.2 % (0.0-0.4); Lymphocytes Absolute Auto 0.9 X10*3/uL (1.2-4.9); Mean Corpuscular Hemoglobin 29.9 pg (27.0-33.0); Mean Corpuscular Volume 85.4 fL (80.0-98.0); Mean Platelet Volume 9.7 fL (9.4-12.4); Monocytes Absolute Auto 0.9 X10*3/uL (0.1-1.2); Monocytes Percent Auto 8.4 % (2-11); Neutrophils Absolute Auto 8.4 x10*3/uL (2.0-8.3); Platelet Count 175 X10*3/uL (160-400); Red Blood Count 4.72 X10*6/uL (4.60-5.80); Red Cell Distribution Width 13.5 % (11.0-16.0); White Blood Count 10.4 X10*3/uL (4.8-10.8)
[2024-01-24 05:36] LABS: Lactic Acid 1.9 mmol/L (0.5-2.0)
[2024-01-24 05:47] LABS: Alanine Aminotransferase 23 U/L (0-40); Albumin Level 3.8 g/dL (3.5-5.0); Alkaline Phosphatase 53 U/L (39-117); Anion Gap 16 (12-20); Aspartate Amino Transferase 18 U/L (5-37); Blood Urea Nitrogen 13 mg/dL (9-16); Calcium 8.6 mg/dL (8.4-10.2); Carbon Dioxide 24 mmol/L (22-29); Chloride 101 mmol/L (96-108); Creatinine Clr Calc Pharmacy 77.5; Estimated Glomerular Filt Rate > 60; Glucose Random 161 mg/dL (60-115); Magnesium 1.9 mg/dL (1.6-2.6); Potassium 4.5 mmol/L (3.3-5.1); Sodium 136 mmol/L (135-145); Total Protein 6.2 g/dL (6.5-8.0)
[2024-01-24 06:00] LABS: Bilirubin Total 1.3 mg/dL (0.0-1.0)
[2024-01-24] MEDS: vancomycin/NS 2,000 MG/500 ML PLAST..BAG 250 MG IV (06:18)
--- NOTE | 2024-01-24 06:36 | PC.NURSE ---
pt brought to overflow bed 2 from ED bed 10. report received from [facility] SOTO. pt ambulates with one staff nearby assist from stretcher into hospital bed.
--- NOTE | 2024-01-24 07:35 | PHA.PROG ---
Admission Date/Time: January 24, 2024 02:23 Indication: Weight in k.5 kg Adjusted body weight in Kg: [place] body weight in Kg: Obesity Dosing Indication % IBW: Serum Creatinine - Last 168 Hours 01/23/24 01/24/24 17:19 05:01 Creatinine 0.94 0.89 Estimated CrCl and GFR - Last 168 Hours 01/23/24 01/24/24 17:19 05:01 Estim Creat Clear Calc 73.3 77.5 Estimated GFR > 60 > 60 Vancomycin Loading Dose: 2000 mg Current Vancomycin Dosing Regimen: 750 mq q12h Vancomycin Monitoring using AUC goal of 400 - 600 range with trough as surrogate marker: AUC 434 mg/L and trough of 14.3 mg/L Date and Time for next Vancomycin Level to be drawn: Pharmacist Comments on Vancomycin Plan: Received their loading kim at 0618 on 01/23, will start 750mg q12h and get a trough before the 4th dose tomorrow at 1600. Vancomycin dosing will take advantage of [employer] as a clinical decision support tool that uses Bayesian modeling to calculate individual patient's pharmacokinetic parameters and forecast the patient's drug concentration time course with the target goal AUC 24 range of 400 - 600 mg/L/hr.
[2024-01-24] MEDS: Heparin Sodium,Porcine 5,000 UNIT/ML VIAL 5000 UNIT SUBCUT ×2 (08:04→20:36)
[2024-01-24] MEDS: 0.9 % Sodium Chloride Flush 3 ML SYRINGE IVFLUSH ×2 (08:05→20:38)
--- NOTE | 2024-01-24 09:15 | PHA.MEDREC ---
Addendum entered by Dalia Escobar RPh 01/24/24 09:37: REVIEWED Original Note: Pharmacy Consult ? Medication Reconciliation Pharmacy has completed the medication reconciliation. Confirmed medications with list provided by patient.
[2024-01-24 09:19] VITALS: BP 157/74; PULSE 75; RESP 18; TEMP 37.2; O2SAT 99
--- NOTE | 2024-01-24 13:28 | P.CDIM_ITS ---
PROVIDER RESPONSE TEXT: To clarify, the appropriate diagnosis supported by the clinical indicators: Other (explain): as above QUERY TEXT: PHYSICIAN'S DOCUMENTATION REQUEST Date of Query: 01/24/2024 12:25 PM EDT Patient Name: Lazaro Dotson Admit Date: 01/24/2024 Dear Christophe Fernandes DO, A review of the medical record indicates additional documentation may be needed. Please review below and update the documentation accordingly. Clinical Indicators: H&P: Plan - Lactic acidosis secondary to metformin IV fluids Clarify which of the following accurately represents the acuity of the Lactic acidosis: Possible options might include: Acute Chronic Other (explain) Clinically unable to determine (explain) Thank you, Karlie Huston, CCS, CDIS Use of terms such as suspected, likely, concern for, or probable (associated with a specific diagnosi s that is being evaluated, monitored, or treated as if it exists) are acceptable and can be coded in the inpatient se tting, when documented at the time of discharge. Please use your independent medical judgment in providing your response. THIS QUERY IS PART OF THE PERMANENT MEDICAL RECORD
--- NOTE | 2024-01-24 14:01 | PM.EVENT ---
Event Note Date of Service: 01/24/24 Event Note: Chart reviewed patient examined. Agree with history and physical and plan as ordered Time Spent With Patient Time: Total time managing care of this patient today ____ minutes.
--- NOTE | 2024-01-24 14:23 | MHC.CM.PN ---
PT LIVES WITH HIS DAUGHTER ,IS INDEPENDENT HAS OWN RIDE HOME ..DC PLAN HOME NO SERVICES
[2024-01-24] MEDS: vancomycin HCL 750 MG in 0.9 % Sodium Chloride 250 ML 265 MG IV (18:04)
[2024-01-24 18:07] LABS: Glucose, Whole Blood 153 mg/dL (60-115)
[2024-01-24 18:19] VITALS: BP 141/70; PULSE 81; RESP 18; TEMP 36.6; O2SAT 95
[2024-01-24 20:00] VITALS: BP 151/70; PULSE 98; RESP 18; TEMP 37.1; O2SAT 97
[2024-01-24] MEDS: metFORMIN HCl ER 500 MG TAB.ER.24H PO (20:36)
[2024-01-24] MEDS: Acetaminophen 325 MG TABLET 975 MG PO (20:37)
[2024-01-25] MEDS: 0.9 % Sodium Chloride 1,000 ML 100 ML IVCONT (00:41)
[2024-01-25 03:43] VITALS: BP 134/72; PULSE 54; RESP 18; TEMP 36.3; O2SAT 97
[2024-01-25] MEDS: vancomycin HCL 750 MG in 0.9 % Sodium Chloride 250 ML 265 MG IV (04:52)
[2024-01-25 06:38] LABS: Creatinine Clr Calc Pharmacy 82.1; Estimated Glomerular Filt Rate > 60
[2024-01-25 07:58] VITALS: BP 138/71; PULSE 57; RESP 12; TEMP 36.6; O2SAT 95
[2024-01-25] MEDS: Meclizine HCl 25 MG TABLET PO ×2 (09:20→20:46)
[2024-01-25] MEDS: Heparin Sodium,Porcine 5,000 UNIT/ML VIAL 5000 UNIT SUBCUT ×2 (09:20→20:45)
[2024-01-25 15:55] VITALS: BP 129/77; PULSE 74; RESP 18; TEMP 36.6; O2SAT 97
--- NOTE | 2024-01-25 16:16 | P.PNIM_ITS ---
Subjective Subjective Date of Service: 01/25/24 Interval History: Being followed for fever Offers no acute complaints denies right upper extremity pain, no worsening left upper back discomfort, no recurrent fevers no chills tolerating diet with no nausea, no vomiting, no abdominal pain, no diarrhea. Review of Systems All other system are reviewed and are negative. Physical Exam 2 Vital Signs: Vital Signs: Last Vital Signs Temp 98 F 01/25/24 15:55 Pulse 74 01/25/24 15:55 Resp 18 01/25/24 15:55 BP 129/77 01/25/24 15:55 Pulse Ox 97 01/25/24 15:55 O2 Del Method Room Air 01/25/24 15:55 BMI result Body Mass Index 25.6 Const: Other: General awake alert x3, resting comfortably in no acute distress. Anicteric sclera Neck no JVD. CVS regular rate rhythm, Respiratory lungs clear to auscultation, no respiratory distress, no wheeze, no rhonchi. Gastrointestinal abdomen soft, non tender, bowel sounds audible. Extremities no edema. Right upper arm with no redness, no swelling. Neuro non focal Skin round raised lesion left upper back, no surrounding fluctuation or induration Psych appropriate affect Objective Data Active Medications Acetaminophen (Acetaminophen 325 Mg Tablet) 975 mg PO Q6H PRN PRN Reason: Pain, Mild (Pain Scale 1-3), fever or headache Last Admin: 01/24/24 20:37 Dose: 975 mg Documented By: ALISTAIR Heparin Sodium (Porcine) (Heparin Sodium,Porcine 5,000 Unit/Ml Vial) 5,000 unit SUBCUT Q12H [facility] Last Admin: 01/25/24 09:20 Dose: 5,000 unit Documented By: NAN Vancomycin HCl 750 mg/ Sodium (Chloride) 265 mls @ 265 mls/hr IV Q12H [facility] Last Infusion: 01/25/24 05:56 Dose: Infused Documented By: ALISTAIR Meclizine HCl (Meclizine Hcl 25 Mg Tablet) 25 mg PO BID [facility] Last Admin: 01/25/24 09:20 Dose: 25 mg Documented By: NAN Melatonin (Melatonin 3 Mg Tablet) 6 mg PO BEDTIME PRN PRN Reason: Insomnia Metformin HCl (Metformin Hcl Er 500 Mg Tab.Er.24h) 500 mg PO BEDTIME [facility] Last Admin: 01/24/24 20:36 Dose: 500 mg Documented By: ALISTAIR Ondansetron HCl (Ondansetron Hcl 4 Mg/2 Ml Vial) 4 mg IVPUSH Q4H PRN PRN Reason: Nausea and Vomiting Pharmacy Consult (Consult Rx Vancomycin Dosing) 1 each MISCELLANE DAILY PRN PRN Reason: Consult order Sodium Chloride (0.9 % Sodium Chloride Flush 3 Ml Syringe) 3 ml IVFLUSH QSHIFT [facility] Last Admin: 01/25/24 09:22 Dose: Not Given Documented By: NAN Non-Admin Reason: IV Running Labs 01/24/24 05:01 01/25/24 05:14 Labs: Laboratory Results - last 24 hr 01/24/24 01/25/24 17:58 05:14 Hold Purple Top SEE NOTE Estim Creat Clear Calc 82.1 Estimated GFR > 60 POC Glucose 153 H Microbiology Microbiology Results: Microbiology 01/23/24 17:18 Blood Culture - Final Blood - Venous Strep agalactiae (Grp B) 01/23/24 17:18 Blood Culture - Preliminary Blood - Venous No growth after 24 hours. Assessment and Plan (1) Fever: Status: Acute (2) Bacteremia: Status: Acute Plan Lazaro Dotson is a 78 y/o man admitted with: Fever, vertigo, nausea and vomiting. No headache, sore throat, ear pain or confusion. Likely due to strep agalactiae bacteremia , all symptoms resolved. Likely some component of reaction to varicella vaccine. Lactic acidosis, likely secondary to metformin use. Hold metformin. Lactic acid normalized DC IV fluids. Sepsis due to group B agalactiae bacteremia continue IV vancomycin and transition to by mouth cephalosporin upon discharge, normal UA, chest x-ray and CT abdomen and pelvis. WBC normalized, no recurrent fevers, all features of sepsis resolved follow ID input Type 2 diabetes mellitus. Stable blood sugars resume metformin upon discharge. Hypothyroidism. Continue levothyroxine. GERD. Continue pantoprazole. Hyperlipidemia. Continue statin. Hypertension. Continue atenolol and amlodipine. Left upper back skin lesion. Follow as an outpatient with Dermatology for biopsy. DVT prophylaxis: Heparin Code status: Full Patient will need continued inpatient hospitalization for IV antibiotics for bacteremia Quality Stroke Does the patient have a stroke diagnosis?: No VTE Prior VTE?: No VTE Risk Level:: Medical - moderate - high VTE Device Contraindication: Treatment Not Indicated VTE Drug Contraindication: N/A - Med Ordered
[2024-01-25 17:11] LABS: Vancomycin Random 8.3 mcg/mL (15-20)
--- NOTE | 2024-01-25 17:21 | HE.PHANOTE ---
Re: Vanco Renal function improving. Trough returned at 8.3, pt is subtherapeutic. Dose increased to 1250 q12h, with predicted AUC 498, and predicted trough 14. Next trough 8 @ 1600.
--- NOTE | 2024-01-25 17:31 | HO.WOUND ---
Wound Consult: Initial 78yr old? Male admitted to [facility] on 01/24/24 02:23 - See progress notes and H&P for detailed history.? Wound consult placed for Left Scapula.? Patient agreeable to assessment and photo documentation.? Patient reports he has had the area for sometime and is pending a dermatology appt in March. He reports she went to his PCP for treatment and the referred him to derm. He does not topical interventions at home - he reports it does leak at times. Left Scapula Etiology: ?Unknown etiology - concern for skin cancer pt advised to keep March Dermatology appointment Measurements: 1.4cm x 1cm x 0.3cm Wound Bed: red moist raised lesion Drainage / Odor: dried serosang drainage noted on dressing Edges: ? mushroomed Manjula wound: intact ? No Induration, Fluctuance or Warmth noted Pain: denies Goals of Treatment: ? keep clean and covered and defer to out pt dermatology at time of d/c - patient demonstrates understanding Recommendations: 1. Left Scapula - Cleanse with Ns moist gauze, Pat dry. Apply skin prep to periwound. Cover with foam dressing and change every 5 days and PRN. Re-consult wound care Nurse for wound deterioration or wound changes.
[2024-01-25] MEDS: vancomycin HCL 1,250 MG in 0.9 % Sodium Chloride 250 ML 166.67 MG IV (17:34)
[2024-01-25 19:25] VITALS: BP 138/76; PULSE 65; RESP 18; TEMP 37; O2SAT 98
[2024-01-25] MEDS: metFORMIN HCl ER 500 MG TAB.ER.24H PO (20:45)
[2024-01-25] MEDS: 0.9 % Sodium Chloride Flush 3 ML SYRINGE IVFLUSH (20:46)
--- NOTE | 2024-01-26 00:28 | W.PM.IDCN ---
History of Present Illness Data of Consult Service Date: 01/25/24 Requesting physician: Hailey Sanchez Primary Care Provider: MD JADIEL Baird Reason for consult: chills He presents with redness back pain left. He has had chills for a day. He has blood culture Group B strep. Review of Systems Review of Systems: Yes all other systems are reviewed and are negative PMFSH Past Medical History 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 Osteoarthritis Pancreatic divisum Acquired hypothyroidism Thoracic aortic aneurysm Above knee amputation of left lower extremity Vertigo History of esophagitis GERD (gastroesophageal reflux disease) Hypercholesteremia Family History Family History Father Lung cancer Daughter Breast cancer Mother Breast cancer Family history: reviewed and not pertinent Surgical History Surgical History H/O removal of cyst History of hand surgery History of total right knee replacement (TKR) History of carpal tunnel surgery of right wrist History of carpal tunnel surgery of left wrist Social History Social History Household Members: Children Housing: House Do you presently have visiting nurse or other home services: No Alcohol intake: never Patient Tobacco Use Status: Never used Tobacco e-Cigarette/Vaping Use: Never Used Second Hand Smoke Exposure: No Advance Directives Date on File: 06/21/09 service: No Current occupational status: employed and retired Cognitive needs: No Hearing needs: No Vision needs: No Meds Allergies Allergy/AdvReac Type Severity Reaction Status Date / Time morphine [MORPHINE] Allergy Mild NAUSEA Verified 01/23/24 17:01 tramadol [Ultracet] Allergy Unknown Nausea Verified 11/24/23 08:21 Penicillins [PENICILLINS] AdvReac Mild NAUSEA & Verified 11/24/23 08:21 VOMITING oxycodone [OXYCODONE] AdvReac Unknown NAUSEA Verified 11/24/23 08:21 SEAFOOD Allergy Unknown NAUSEA & Uncoded 11/24/23 08:21 VOMITING shellfish Allergy Unknown anaphylaxis Uncoded 11/24/23 08:21 Codeine Sulfate AdvReac Unknown Nausea Uncoded 11/24/23 08:21 Active Medications: Current Medications Acetaminophen (Acetaminophen 325 Mg Tablet) 975 mg PO Q6H PRN PRN Reason: Pain, Mild (Pain Scale 1-3), fever or headache Last Admin: 01/24/24 20:37 Dose: 975 mg Heparin Sodium (Porcine) (Heparin Sodium,Porcine 5,000 Unit/Ml Vial) 5,000 unit SUBCUT Q12H [facility] Last Admin: 01/25/24 20:45 Dose: 5,000 unit Vancomycin HCl 1,250 mg/ (Sodium Chloride) 250 mls @ 166.667 mls/hr IV Q12H [facility] Last Infusion: 01/25/24 19:49 Dose: Infused Meclizine HCl (Meclizine Hcl 25 Mg Tablet) 25 mg PO BID [facility] Last Admin: 01/25/24 20:46 Dose: 25 mg Melatonin (Melatonin 3 Mg Tablet) 6 mg PO BEDTIME PRN PRN Reason: Insomnia Metformin HCl (Metformin Hcl Er 500 Mg Tab.Er.24h) 500 mg PO BEDTIME [facility] Last Admin: 01/25/24 20:45 Dose: 500 mg Ondansetron HCl (Ondansetron Hcl 4 Mg/2 Ml Vial) 4 mg IVPUSH Q4H PRN PRN Reason: Nausea and Vomiting Pharmacy Consult (Consult Rx Vancomycin Dosing) 1 each MISCELLANE DAILY PRN PRN Reason: Consult order Sodium Chloride (0.9 % Sodium Chloride Flush 3 Ml Syringe) 3 ml IVFLUSH QSHIFT [facility] Last Admin: 01/25/24 20:46 Dose: 3 ml Home Medications ?Medication ?Instructions ?Recorded ?Confirmed ?Last Taken ?Type ascorbic acid (vitamin C) 1,000 mg 1,000 mg PO DAILY 01/24/24 01/24/24 01/22/24 02:30 History tablet (Vitamin C) aspirin 81 mg tablet,delayed 81 mg PO DAILY 01/24/24 01/24/24 01/22/24 02:30 History release cyanocobalamin (vitamin B-12) 2,500 mcg sublingual DAILY 01/24/24 01/24/24 01/22/24 02:30 History 2,500 mcg sublingual tablet (Vitamin B-12) levothyroxine 100 mcg tablet 100 mcg PO DAILY@0600 01/24/24 01/24/24 01/22/24 02:30 History metformin 500 mg tablet,extended 500 mg PO BEDTIME 01/24/24 01/24/24 01/22/24 02:30 History release 24 hr omega 0-nhn-qlv-fish oil 1,200 mg 1 cap PO DAILY 01/24/24 01/24/24 01/22/24 02:30 History (144 mg-216 mg) capsule (Fish Oil) Physical Exam Vital Signs: Vital Signs: Last Vital Signs Temp 98.6 F 01/25/24 19:25 Pulse 65 01/25/24 19:25 Resp 18 01/25/24 19:25 BP 138/76 01/25/24 19:25 Pulse Ox 98 01/25/24 19:25 O2 Del Method Room Air 01/25/24 19:25 BMI result Body Mass Index 25.6 Const: General: cooperative HEENT: Head: Yes normal to inspection Face and sinus: Yes normal facial exam Mouth: Normal oral and palatal mucosa present Teeth and gingiva: dentition normal Eyes: General: appearance normal, both eyes and all related structures Pupils: Equal, round and reactive pupils present Resp: Effort & Inspection: normal respiratory effort Cardio: Rate: regular rate Rhythm: regular rhythm GI: Palpation (GI): Soft to palpation and nontender : General: Yes no CVA tenderness Back/Spine/Pelvis: Back: no CVA tenderness Skin: Other: redness left back area redness Neuro: General: moves all extremities Cranial nerves: Yes Equal, round and reactive pupils present Extrem: General: Yes normal to inspection Psych: Appearance: grossly normal Results Labs 01/24/24 05:01 01/25/24 05:14 Labs: BMP 01/25/24 05:14 Creatinine 0.84 Microbiology Microbiology Results: Microbiology 01/23/24 17:18 Blood - Venous Blood Culture - Preliminary No growth after 48 hours. 01/23/24 17:18 Blood - Venous Blood Culture - Final Strep agalactiae (Grp B) Assessment and Plan (1) Bacteremia: Status: Acute Plan Group B strep bacteremia normal toi and did galilea Ceftriaxone to help this. Recheck blood culture. Probably watche see if improve and then po cephalsapoirn total .
[2024-01-26 03:35] VITALS: BP 134/71; PULSE 71; RESP 18; TEMP 36.6; O2SAT 98
[2024-01-26] MEDS: vancomycin HCL 1,250 MG in 0.9 % Sodium Chloride 250 ML 166.67 MG IV (05:52)
[2024-01-26 07:20] LABS: Creatinine Clr Calc Pharmacy 79.2; Estimated Glomerular Filt Rate > 60
[2024-01-26 07:30] VITALS: BP 134/75; PULSE 64; RESP 14; TEMP 36.6; O2SAT 96
[2024-01-26] MEDS: Meclizine HCl 25 MG TABLET PO (08:34)
[2024-01-26] MEDS: 0.9 % Sodium Chloride Flush 3 ML SYRINGE IVFLUSH (08:34)
[2024-01-26] MEDS: Heparin Sodium,Porcine 5,000 UNIT/ML VIAL 5000 UNIT SUBCUT (08:34)
--- NOTE | 2024-01-26 12:24 | PM.DS ---
DS: Providers Provider Date of Service: 01/26/24 Date of admission: 01/24/24 02:23 Primary care physician: Adolph Bolden MD Consults: 01/25/24 10:42 Consult to Infectious Diseases Routine Consulting Provider: [facility] Reason for consultation: gm pos bacteremia Has provider been notified: No 01/25/24 13:57 Consult to Wound Care Routine Reason for consultation: Left shoulder. DS: Diagnosis Discharge Diagnosis (1) Bacteremia: Status: Acute DS: Summary Hospital Course Hospital Course: History of presenting illness: Date of Service: 01/24/24 Attending physician on admission: Nette Chacon Chief Complaint: Vertigo Lazaro Dotson is a very pleasant 78 years old man with past medical history significant for vertigo, hypothyroidism, type 2 diabetes mellitus on metformin, GERD, hyperlipidemia and hypertension presents to the emergency department complaining of dizziness/vertigo like associated with nausea, vomiting and chills. He denies headache, nasal congestion, sore throat, ear pain, abdominal pain, diarrhea or any acute urinary symptoms. Last Tuesday, he received the shingles vaccination. He showed me a lesion that he has in his left upper back/posterior shoulder area that he has had for the last couple of months. In the ED, he was found to have normal vital signs except for elevated temperature of 103.4 degrees. Blood workup was remarkable for leukocytosis of 13.6. Hemoglobin platelets are normal. Glucose is 200. Initial lactic acid was 3.3 (most recent is 2.4). There are no electrolyte imbalances. LFTs are basically normal except for slight elevation of bilirubin, 1.2. BNP, troponin and lipase are normal. UA showed no findings consistent with UTI. Abdomen pelvis CT scan showed no acute pathology. ED tx: Levofloxacin 500 mg IV X1. Hospital course 78 y/o man admitted with Fever, vertigo, nausea and vomiting, noted to have SIRS, no acute infection was found, with normal urinalysis, chest x-ray and CT abdomen and pelvis, initially felt to have reaction to varicella vaccine. Blood blood culture were sent patient empirically treated with IV vancomycin, final blood culture grew strep agalactiae bacteremia, therefore vancomycin discontinued ,now being discharged on by mouth Ceftin for total 2 weeks as per ID recommendation repeat blood cultures are pending, patient had no recurrent fevers, no dizziness, no nausea,no vomiting, tolerating diet and clinically stable . In regard to Type 2 diabetes mellitus recommend to resume metformin. Hypothyroidism. Continue levothyroxine. GERD. Continue pantoprazole. Hyperlipidemia. Continue statin. Hypertension. Continue atenolol , discontinued amlodipine since noted to have stable blood pressures off of medication. Left upper back skin lesion. Follow as an outpatient with Dermatology for biopsy. Time Attestation Discharge Coordination Time (in mins): 40 Quality: Safe Use of Opioids Does Pt have an Active Cancer Diagnosis on the Problem List?: No Quality: Stroke Does the patient have a stroke diagnosis?: No Physical Exam Vital Signs: Vital Signs: Last Vital Signs Temp 98 F 01/26/24 07:30 Pulse 64 01/26/24 07:30 Resp 14 01/26/24 07:30 BP 134/75 01/26/24 07:30 Pulse Ox 96 01/26/24 07:30 O2 Del Method Room Air 01/26/24 07:30 BMI result Body Mass Index 25.6 Const: Other: General awake alert x3, resting comfortably in no acute distress. Anicteric sclera Neck no JVD. CVS regular rate rhythm, Respiratory lungs clear to auscultation, no respiratory distress, no wheeze, no rhonchi. Gastrointestinal abdomen soft, non tender, bowel sounds audible. Extremities no edema. Right upper arm with no redness, no swelling. Neuro non focal Skin round raised lesion left upper back, no surrounding fluctuation or induration. Psych appropriate affect DS: Data Data Completed and Pending Labs on day of discharge: Laboratory Results - last 24 hr 01/25/24 01/26/24 16:55 05:13 Creatinine 0.87 Estim Creat Clear Calc 79.2 Estimated GFR > 60 Random Vancomycin 8.3 L Preliminary micro results at discharge 01/23/24 17:18 Blood Culture - Preliminary Blood - Venous No growth after 48 hours. Discharge Plan Discharge Anticipated Discharge Date/Time: 01/26/24 12:16 Patient Disposition: Home, Self-Care Discharge Diagnosis: Sepsis due to bacteremia Referrals: Adolph Bolden MD [Primary Care Provider] - 1 Week Discharge Medications: New cefuroxime axetil 500 mg tablet 500 mg PO BID Qty: 22 0RF Continued pantoprazole 40 mg tablet,delayed release (DR/EC) 40 mg PO DAILY Qty: 90 1RF meclizine 25 mg tablet 25 mg PO BID PRN (Reason: dizziness) Qty: 60 0RF atorvastatin 40 mg tablet 40 mg PO DAILY Qty: 90 1RF Rx Instructions: Schedule next PCP appt for future refills atenolol 50 mg tablet 50 mg PO DAILY Qty: 90 0RF Rx Instructions: schedule next PCP appt for future refills ascorbic acid (vitamin C) [Vitamin C] 1,000 mg Tablet 1,000 mg PO DAILY cyanocobalamin (vitamin B-12) [Vitamin B-12] 2,500 mcg Tablet, Sublingual 2,500 mcg SUBLINGUAL DAILY aspirin 81 mg Tablet,Delayed Release (Dr/Ec) 81 mg PO DAILY levothyroxine 100 mcg tablet 100 mcg PO DAILY@0600 omega 3-avl-kop-fish oil [Fish Oil] 1,200 (144-216) mg Capsule 1 cap PO DAILY metformin 500 mg tablet extended release 24 hr 500 mg PO BEDTIME Discontinued amlodipine 5 mg tablet 5 mg PO DAILY Qty: 90 1RF Discharge Orders: Discharge Order (Routine); Ordered 01/26/24 Ordered By: Hailey Sanchez Diet: Advance to usual diet Activity on Discharge: As tolerated Stand Alone Forms: Patient Portal Discharge page Print Language: [place] Verdean Care Plan Goals: Take Ceftin 500 mg 1 tablet twice daily for 11 more days Returned to check if noted to have recurrent fevers chills Health Concerns: Type 2 diabetes mellitus/hyperlipidemia/hypertension Plan of Treatment: Outpatient follow-up with primary care physician call for appointment Assessment: as above
--- NOTE | 2024-01-26 13:16 | MHC.CM.PN ---
Patient medically cleared for dc home self care. Family will provide transport ~2pm. RN aware.
== END 2024-01-26 14:48 | disposition home or self-care (01) | DRG 864 ==
LOC: HO.ED 01-24 01:55 → HO.EDOVER 01-24 02:29 → HO.S3 01-24 16:56
PROVIDERS: Hospitalist; Nurse Practitioner Family; Admitting Provider Internal Medicine; Emergency Provider Emergency Medicine Emergency Medical Services; PCP Internal Medicine; Visit Provider Hospitalist
DX: R50.83 Postvaccination fever (principal); E87.20 Acidosis, unspecified; R65.10 Systemic inflammatory response syndrome (SIRS) of non-infectious origin without acute organ dysfunction; L98.9 Disorder of the skin and subcutaneous tissue, unspecified; E03.9 Hypothyroidism, unspecified; K21.9 Gastro-esophageal reflux disease without esophagitis; T50.B95A Adverse effect of other viral vaccines, initial encounter; E78.5 Hyperlipidemia, unspecified; E11.9 Type 2 diabetes mellitus without complications; R42 Dizziness and giddiness; T38.3X5A Adverse effect of insulin and oral hypoglycemic [antidiabetic] drugs, initial encounter; Z20.822 Contact with and (suspected) exposure to COVID-19; Z89.612 Acquired absence of left leg above knee; Z79.83 Long term (current) use of bisphosphonates; Z79.890 Hormone replacement therapy; Z79.84 Long term (current) use of oral hypoglycemic drugs; Z79.899 Other long term (current) drug therapy
CPT/HCPCS: 0241U; 36415; 71045; 74177; 80053; 80202; 81001; 81003; 82565; 82947; 83605; 83690; 83735; 83880; 84484; 85025; 85610; 87040; 87147; 87205; 93005; 99285; J0696; J1644; J1956; J2405; J3370; J3371

== ENCOUNTER → 2024-01-23 16:59 | Outpatient (BNV) | payer MEDICARE, MEDICAID, SELFPAY | PROVIDERS: Admitting Provider Internal Medicine; Emergency Provider Emergency Medicine Emergency Medical Services; PCP Internal Medicine; Visit Provider Internal Medicine Cardiovascular Disease | DX: I44.0 Atrioventricular block, first degree (principal); R10.9 Unspecified abdominal pain | CPT/HCPCS: 93010 ==

== ENCOUNTER → 2024-01-24 02:23 | Outpatient (BNV) | payer MEDICARE, MEDICAID, SELFPAY | PROVIDERS: Admitting Provider Internal Medicine; Emergency Provider Emergency Medicine Emergency Medical Services; PCP Internal Medicine; Visit Provider Internal Medicine | DX: R50.83 Postvaccination fever (principal); R78.81 Bacteremia | CPT/HCPCS: 99223; 99232; 99239; 99499 ==

== ENCOUNTER → 2024-01-24 02:23 | Outpatient (BNV) | payer MEDICARE, MEDICAID, SELFPAY | PROVIDERS: Admitting Provider Internal Medicine; Emergency Provider Emergency Medicine Emergency Medical Services; PCP Internal Medicine; Visit Provider Internal Medicine | DX: R78.81 Bacteremia (principal) | CPT/HCPCS: 99222 ==

== ENCOUNTER 2024-08-02 14:33 | Emergency (ER) | payer MEDICARE, MEDICAID, SELFPAY ==
--- NOTE | ~2024-08-02 | CT_ITS ---
CLINICAL HISTORY: pain, divertic? CT abdomen and pelvis with contrast Comparison: CT/SR - CT ABDOMEN PELVIS W IV CON - 01/23/24 20:44 EDT Findings: No consolidation or effusion. Fatty infiltration of the liver. Spleen, adrenal glands, pancreas, gallbladder and kidneys are unremarkable. There is a subcentimeter low-attenuation lesion within the lower pole of the right kidney most likely a small cyst but too small to fully characterize. Fluid-filled colon. Small bowel loops are normal caliber. No evidence of bowel obstruction. There is no significant diverticula. No evidence of diverticulitis. The appendix is normal. Prostatomegaly. Mild levoscoliosis of the lumbar spine. IMPRESSION: No acute findings. Fluid-filled colon, which could indicate diarrhea. This document has been electronically signed by: Eric Richards MD on 08/03/2024 00:41:35
[2024-08-02 14:41] VITALS: BP 128/78; PULSE 98; O2SAT 98
[2024-08-02 15:30] VITALS: BP 137/83; PULSE 90; RESP 18; TEMP 37.4; O2SAT 99; BMI 26.4
--- NOTE | 2024-08-02 15:33 | ED_ITS ---
HPI - General Adult General Chief complaint: Nausea/Vomiting/Diarrhea Stated complaint: DIARRHEA X3D PER EMS Time Seen by Provider: 08/02/24 22:18 Source: patient Limitations: no limitations History of Present Illness ED Provider: Dori Baron PA-C HPI narrative: 78-year-old male with a history of hypertension, hyperlipidemia, hypothyroidism, diabetes, presents with nausea vomiting diarrhea x3 days. Associated lower abdominal discomfort, unable to describe the nature of his pain. Patient denies sick contacts with similar symptoms. Denies fever, use of recent antibiotics, no recent travel or hospitalizations. Related Data Home Medications ?Medication ?Instructions ?Recorded ?Confirmed ascorbic acid (vitamin C) 1,000 mg 1,000 mg PO DAILY 01/24/24 01/24/24 tablet (Vitamin C) aspirin 81 mg tablet,delayed 81 mg PO DAILY 01/24/24 01/24/24 release cyanocobalamin (vitamin B-12) 2,500 mcg sublingual DAILY 01/24/24 01/24/24 2,500 mcg sublingual tablet (Vitamin B-12) levothyroxine 100 mcg tablet 100 mcg PO DAILY@0600 01/24/24 01/24/24 metformin 500 mg tablet,extended 500 mg PO BEDTIME 01/24/24 01/24/24 release 24 hr omega 8-nkt-ejg-fish oil 1,200 mg 1 cap PO DAILY 01/24/24 01/24/24 (144 mg-216 mg) capsule (Fish Oil) Previous Rx's ?Medication ?Instructions ?Recorded meclizine 25 mg tablet 25 mg PO BID PRN dizziness #60 tabs 05/18/22 pantoprazole 40 mg tablet,delayed 40 mg PO DAILY #90 tabs 05/18/22 release atorvastatin 40 mg tablet 40 mg PO DAILY #90 tabs 09/23/22 atenolol 50 mg tablet 50 mg PO DAILY #90 tabs 11/03/22 cefuroxime axetil 500 mg tablet 500 mg PO BID #22 tabs 01/26/24 dicyclomine 20 mg tablet 20 mg PO BID PRN abdominal pain #7 08/03/24 tabs Allergies Allergy/AdvReac Type Severity Reaction Status Date / Time morphine [MORPHINE] Allergy Mild NAUSEA Verified 08/02/24 15:34 tramadol [Ultracet] Allergy Unknown Nausea Verified 08/02/24 15:34 Penicillins [PENICILLINS] AdvReac Mild NAUSEA & Verified 08/02/24 15:34 VOMITING oxycodone [OXYCODONE] AdvReac Unknown NAUSEA Verified 08/02/24 15:34 SEAFOOD Allergy Unknown NAUSEA & Uncoded 11/24/23 08:21 VOMITING shellfish Allergy Unknown anaphylaxis Uncoded 11/24/23 08:21 Codeine Sulfate AdvReac Unknown Nausea Uncoded 11/24/23 08:21 Review of Systems 2 Review of Systems: Yes all other systems are reviewed and are negative Constitutional: Constitutional: Denies fatigue and Denies fever(s) Cardiovascular: Cardiovascular: Denies chest pain and Denies dyspnea Respiratory: Respiratory: Denies cough and Denies dyspnea Gastrointestinal: Gastrointestinal: Reports abdominal pain, Reports diarrhea, Reports nausea and Reports vomiting Endocrine: Endocrine: Denies fatigue PMFSH Past Medical History Attestation statement: The following information was validated with the patient. 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 Osteoarthritis Pancreatic divisum Acquired hypothyroidism Thoracic aortic aneurysm Above knee amputation of left lower extremity Vertigo History of esophagitis GERD (gastroesophageal reflux disease) Hypercholesteremia Surgical History H/O removal of cyst History of hand surgery History of total right knee replacement (TKR) History of carpal tunnel surgery of right wrist History of carpal tunnel surgery of left wrist Family History Family History Father Lung cancer Daughter Breast cancer Mother Breast cancer Social History Social History Household Members: Children Housing: House Do you presently have visiting nurse or other home services: No Alcohol intake: never Patient Tobacco Use Status: Never used Tobacco e-Cigarette/Vaping Use: Never Used Second Hand Smoke Exposure: No Advance Directives Date on File: 06/21/09 service: No Current occupational status: employed and retired Cognitive needs: No Hearing needs: No Vision needs: No Physical Exam ED Vital Signs: Vital Signs - 24 hr 08/02/24 15:30 08/02/24 21:57 08/02/24 22:00 Temperature 99.3 F 97.5 F 101.2 F H Pulse Rate 90 80 Respiratory Rate 18 18 Blood Pressure 137/83 153/73 H Pulse Oximetry 99 97 Oxygen Delivery Method Room Air Room Air 08/02/24 23:48 08/03/24 01:46 Temperature 100.0 F 98.6 F Pulse Rate 71 65 Respiratory Rate 16 20 Blood Pressure 124/66 116/68 Pulse Oximetry 95 95 Oxygen Delivery Method Room Air Room Air BMI result Body Mass Index 26.4 Const Other: Alert Orientation/consciousness: patient oriented x3 Resp Effort & Inspection: normal respiratory effort Cardio Other: Normal peripheral perfusion GI Other: Abdomen is soft, nondistended, mild to moderate tenderness across lower abdomen, left greater than right, no guarding Skin Other: Warm dry no rash Neuro General: patient oriented x3, gait normal, no focal motor deficits and CN's II- XI intact bilaterally Psych Other: Cooperative Course Course Course Narrative: This is a rapid medical exam performed by Brent Mack NP: Additional HPI, ROS, PE not included below will be deferred to primary provider. Patient is a 78-year-old male presenting with complaint of body aches, chills and diarrhea since this morning. [facility] was recently sick with similar symptoms. Plan: viral panel, labs, UA Medications Administered Discontinued Medications Generic Name Dose Route Start Last Admin Trade Name Freq PRN Reason Stop Dose Admin Acetaminophen 975 mg 08/02/24 22:12 08/02/24 22:20 Acetaminophen 325 Mg Tablet PO 08/02/24 22:13 975 mg ONCE ONE Administration Ceftriaxone Sodium 2 gm 08/02/24 23:29 08/02/24 23:52 Ceftriaxone Sodium 2 Gm Vial IVPUSH 08/02/24 23:30 2 gm ONCE ONE Administration Dicyclomine HCl 20 mg 08/03/24 01:33 08/03/24 01:44 Dicyclomine Hcl 10 Mg Capsule PO 08/03/24 01:34 20 mg ONCE ONE Administration Sodium Chloride 500 mls @ 500 mls/hr 08/02/24 23:29 08/03/24 01:38 Ns IV 08/03/24 00:28 Infused .Q1H ONE Infusion Iohexol 85 ml 08/02/24 23:48 08/02/24 23:49 Iohexol 350 Mg/Ml 100 Ml Infus..Btl IV 08/02/24 23:49 85 ml ONCE ONE Administration Medical Decision Making Medical Decision Making MDM Narrative: 78-year-old male with a history of hypertension, hyperlipidemia, hypothyroidism, diabetes, presents with nausea vomiting diarrhea x3 days. Associated lower abdominal discomfort, unable to describe the nature of his pain. Patient denies sick contacts with similar symptoms. Denies fever, use of recent antibiotics, no recent travel or hospitalizations. Problem: Age, diabetes History: Per patient I have considered the following differential diagnoses: Diverticulitis, viral gastroenteritis, traveler's diarrhea, C diff Plan: Given the patient was having concurrent abdominal pain, I am obtaining a CT scan to rule out diverticulitis. Thought about viral gastroenteritis, however the patient does not have sick contacts with similar symptoms. He has no risk factors for C diff or traveler's diarrhea. Labs: slight leukocytosis, not anemic, no electrolyte abnormalities, viral panel negative, urine concentrated, CT abdomen and pelvis:Findings: No consolidation or effusion. Fatty infiltration of the liver. Spleen, adrenal glands, pancreas, gallbladder and kidneys are unremarkable. There is a subcentimeter low-attenuation lesion within the lower pole of the right kidney most likely a small cyst but too small to fully characterize. Fluid-filled colon. Small bowel loops are normal caliber. No evidence of bowel obstruction. There is no significant diverticula. No evidence of diverticulitis. The appendix is normal. Prostatomegaly. Mild levoscoliosis of the lumbar spine. IMPRESSION: No acute findings. Fluid-filled colon, which could indicate diarrhea. This document has been electronically signed by: Eric Richards MD on 08/03/2024 00:41:35 Lab Data 08/02/24 15:47 08/02/24 15:47 Labs: Lab Results 08/02/24 Range/Units 15:47 WBC 14.0 H (4.8-10.8) X10*3/uL RBC 5.68 D (4.60-5.80) X10*6/uL Hgb 16.9 (14.0-18.0) g/dl Hct 48.2 (42.0-52.0) % MCV 84.9 (80.0-98.0) fL MCH 29.8 (27.0-33.0) pg MCHC 35.1 (31.0-36.0) g/dl RDW 13.4 (11.0-16.0) % Plt Count 276 D (160-400) X10*3/uL MPV 9.6 (9.4-12.4) fL Immature Gran % (Auto) 0.6 H (0.0-0.4) % Neut % (Auto) 86.9 H (45-73) % Lymph % (Auto) 6.9 L (20-40) % [place] % (Auto) 4.3 (2-11) % Eos % (Auto) 1.1 (0-4) % Baso % (Auto) 0.2 (0-2) % Lymph # (Auto) 1.0 L (1.2-4.9) X10*3/uL [place] # (Auto) 0.6 (0.1-1.2) X10*3/uL Eos # (Auto) 0.2 (0.0-0.4) X10*3/uL Baso # (Auto) 0.0 (0.0-0.2) X10*3/uL Abs Immat Gran (auto) 0.09 H (0.00-0.03) X10*3/uL Absolute Neuts (auto) 12.2 H (2.0-8.3) x10*3/uL Absolute Nucleated RBC 0.000 (0.0-0.012) X10*3/uL Nucleated RBC % (auto) 0.0 (0.0-0.2) /100WBC PT 11.5 (10.9-12.4) SEC INR 1.0 (0.9-1.1) Sodium 137 (135-145) mmol/L Potassium 4.8 (3.3-5.1) mmol/L Chloride 101 (96-108) mmol/L Carbon Dioxide 22 (22-29) mmol/L Anion Gap 19 (12-20) BUN 22 H (9-16) mg/dL Creatinine 0.95 (0.5-1.4) mg/dL Estim Creat Clear Calc 70.4 Estimated GFR > 60 Random Glucose 156 H (60-115) mg/dL Calcium 10.0 D (8.4-10.2) mg/dL Magnesium 1.8 (1.6-2.6) mg/dL Total Bilirubin 1.5 H (0.0-1.0) mg/dL AST 32 (5-37) U/L ALT 42 H (0-40) U/L Alkaline Phosphatase 66 (39-117) U/L Total Protein 8.0 (6.5-8.0) g/dL Albumin 4.7 (3.5-5.0) g/dL Urine Color Dark Yellow Urine Appearance Clear Urine pH 5.0 (5.0-9.0) Ur Specific [place] >= 1.030 H (1.005-1.025) Urine Protein 30 (1+) H (Neg-Trace) mg/dL Urine Glucose (UA) Negative (Negative) mg/dL Urine Ketones 15 (Negative) mg/dL Urine Blood Negative (Negative) Urine Nitrite Negative (Negative) Ur Leukocyte Esterase Small (1+) H (Negative) Urine RBC 0-2 (0-2) /HPF Urine WBC 6-10 H (0-5) /HPF Ur Squamous Epith Cells 0-2 (0-2) /HPF Urine Bacteria None Seen (None Seen) Hyaline Casts 0-2 (0-2) /LPF Influenza Type A (PCR) NEGATIVE (Negative) Influenza Type B (PCR) NEGATIVE (Negative) RSV RNA Qual (PCR) NEGATIVE (Negative) SARS-CoV-2 RNA (RT-PCR) NEGATIVE (Negative) Discharge Plan Discharge Clinical Impression: Gastroenteritis Patient Disposition: Home, Self-Care Instructions: Gastroenteritis (ED) Additional Instructions: Overall your labs were normal, there was no acute process noted on CT scan of the abdomen. You have a virus causing your symptoms. Such illness has been circulating within the community. See home care instructions. Follow up bland diet. Use the dicyclomine as needed for abdominal cramping. Follow up with your primary care provider next week. Prescriptions: New dicyclomine 20 mg tablet 20 mg PO BID PRN (Reason: abdominal pain) Qty: 7 0RF No Action pantoprazole 40 mg tablet,delayed release (DR/EC) 40 mg PO DAILY Qty: 90 1RF meclizine 25 mg tablet 25 mg PO BID PRN (Reason: dizziness) Qty: 60 0RF atorvastatin 40 mg tablet 40 mg PO DAILY Qty: 90 1RF Rx Instructions: Schedule next PCP appt for future refills atenolol 50 mg tablet 50 mg PO DAILY Qty: 90 0RF Rx Instructions: schedule next PCP appt for future refills ascorbic acid (vitamin C) [Vitamin C] 1,000 mg Tablet 1,000 mg PO DAILY cyanocobalamin (vitamin B-12) [Vitamin B-12] 2,500 mcg Tablet, Sublingual 2,500 mcg SUBLINGUAL DAILY aspirin 81 mg Tablet,Delayed Release (Dr/Ec) 81 mg PO DAILY levothyroxine 100 mcg tablet 100 mcg PO DAILY@0600 omega 2-xtk-yxd-fish oil [Fish Oil] 1,200 (144-216) mg Capsule 1 cap PO DAILY metformin 500 mg tablet extended release 24 hr 500 mg PO BEDTIME cefuroxime axetil 500 mg tablet 500 mg PO BID Qty: 22 0RF Interventions: ED Discharge Assessment Last Done: 08/03/24 04:22 Discharge Date/Time: 08/03/24 04:30 Print Language: Lithuanian
[2024-08-02 15:54] LABS: MANUAL DIFF FLAG NO
[2024-08-02 16:08] LABS: Basophils Percent Auto 0.2 % (0-2); Eosinophils Absolute Auto 0.2 X10*3/uL (0.0-0.4); Eosinophils Percent Auto 1.1 % (0-4); Hematocrit 48.2 % (42.0-52.0); Hemoglobin 16.9 g/dl (14.0-18.0); Imm Gran Abs Auto 0.09 X10*3/uL (0.00-0.03); Imm Gran Pct Auto 0.6 % (0.0-0.4); Lymphocytes Percent Auto 6.9 % (20-40); Mean Corpuscular HGB Conc 35.1 g/dl (31.0-36.0); Mean Corpuscular Hemoglobin 29.8 pg (27.0-33.0); Mean Corpuscular Volume 84.9 fL (80.0-98.0); Mean Platelet Volume 9.6 fL (9.4-12.4); Monocytes Absolute Auto 0.6 X10*3/uL (0.1-1.2); Monocytes Percent Auto 4.3 % (2-11); Neutrophils Absolute Auto 12.2 x10*3/uL (2.0-8.3); Neutrophils Percent Auto 86.9 % (45-73); Platelet Count 276 X10*3/uL (160-400); Red Blood Count 5.68 X10*6/uL (4.60-5.80); Red Cell Distribution Width 13.4 % (11.0-16.0)
[2024-08-02 16:10] LABS: Alanine Aminotransferase 42 U/L (0-40); Albumin Level 4.7 g/dL (3.5-5.0); Alkaline Phosphatase 66 U/L (39-117); Anion Gap 19 (12-20); Aspartate Amino Transferase 32 U/L (5-37); Bilirubin Total 1.5 mg/dL (0.0-1.0); Blood Urea Nitrogen 22 mg/dL (9-16); Carbon Dioxide 22 mmol/L (22-29); Chloride 101 mmol/L (96-108); Creatinine Clr Calc Pharmacy 70.4; Estimated Glomerular Filt Rate > 60; Glucose Random 156 mg/dL (60-115); Magnesium 1.8 mg/dL (1.6-2.6); Potassium 4.8 mmol/L (3.3-5.1); Sodium 137 mmol/L (135-145)
[2024-08-02 16:12] LABS: Appearance Urine Clear; Color Urine Dark Yellow; Glucose Urine UA Negative (Negative); Leukocyte Esterase Urine Small (1+) (Negative); Nitrite Urine Negative (Negative); Specific Gravity - Urine >= 1.030 (1.005-1.025); UMIC TRIGGER UACC YES; Urine Blood Negative (Negative); Urine Ketones 15 mg/dL (Negative); Urine Protein 30 (1+) mg/dL (Neg-Trace)
[2024-08-02 16:14] LABS: Bacteria Urine None Seen (None Seen); Hyaline Casts Urine 0-2 /LPF (0-2); RBC Urine 0-2 /HPF (0-2); Squamous Epithelial Cell Urine 0-2 /HPF (0-2); UACC Culture Trigger YES
[2024-08-02 16:21] LABS: Prothrombin Time 11.5 SEC (10.9-12.4)
[2024-08-02 17:00] LABS: Influenza A PCR NEGATIVE (Negative); Influenza B PCR NEGATIVE (Negative); Resp Syncy Virus RNA Qual PCR NEGATIVE (Negative); SARS COV2 PCR INHOUSE NEGATIVE (Negative)
[2024-08-02 21:57] VITALS: BP 153/73; PULSE 80; RESP 18; TEMP 36.4; O2SAT 97
[2024-08-02 22:00] VITALS: TEMP 38.4
[2024-08-02] MEDS: Acetaminophen 325 MG TABLET 975 MG PO (22:20)
--- OUTSIDE RECORDS SUMMARY | 2024-08-02 22:27 | XMS_ITS | Patient Health Record ---
Author Organization [facility] Address [address] [place] [id number] Care Team Providers Care Citrix Engineer Name Role Phone Tonny DIMAS, Makayla Primary Care Provider Yandel Harris Jr [phone] ALLERGIES Allergen (clinical drug ingredient) Drug/Non Drug Allergy documented on EMR Reaction Allergy Type Onset Date Status morphine Morphine Sulfate Unknown Drug Allergy Active codeine Codeine Sulfate Unknown Drug Allergy A ctive Shellfish (FN) shell fish (uncoded) Unknown Allergy Active REASON FOR REFERRAL No Information MEDICATIONS Medication SIG (Take, Route, Frequency, Duration) Notes Start Date End Date Status Inner Ear Plus - balance/as directed Orally Active MiraLax (colon prep) 8.3 ounce ((238) grams mixed with Gatorade or Crystal Light orally begin at 5:00 p.m. the day before the procedure for 1 day 03/07/2020 Active Meclizine HCl 25 MG 1 tablet as needed Orally Once a day Active amLODIPine Besylate 5 MG 1 tablet Orally Once a day Active Aspir-81 81 MG 1 tablet Orally Once a day Active Levothyroxine Sodium 112 MCG 1 tablet Or ally Once a day Active Atorvastatin Calcium 40 MG 1 tablet Oral ly Once a day Active Ibuprofen 800 MG 1 tablet Orally as needed Active Pantoprazole Sodium 40 MG 1 tablet Orall y Once a day Active Atenolol 50 MG 1 tablet Orally Once a day Active Vitamin C 1000 MG 1 tablet Orally Once a day Active Fish Oil 1200 MG 1 capsule Orally Onc e a day Active Vitamin B12 1000 1 Orally qd A ctive SOCIAL HISTORY Sex Assigned At : Social History Observation Description Sex Assigned At Unknown PROBLEMS Problem Type ICD Code Onset Dates Problem Status W/U Status Risk SNOMED Code Notes Problem Abn findings-GI tract (R93.3) Active confirmed 938103123 Problem Gastroesophageal reflux disease without esophagitis (K21.9) Active confirmed 363478472 Problem Colon cancer screening (Z12.11) Active confirmed 579999084 PLAN OF TREATMENT Future Test Test Name Order Date UPPER GI ENDOSCOPY 03/07/2020 COLONOSCOPY 03/07/2020 Insurance Providers Payer Name Payer Address Payer Phone Subscriber Number Group Number Insured Name Patient Relationship to Insured Coverage Start Date Coverage End Date MEDICARE OF [place] [address] [place] [id number] SHARMILA STEINBERG Self - patient is the insured MEDICAID OF [facility] [address] [place] [address] [id number] SHARMILA STEINBERG Self - patient is the insured MEDICAL (GENERAL) HISTORY Medical History History ICD Code Denies PA,DM,CVA,Lung disease,renal dise ase hypertension vertigo Surgical History Surgery Date(Month/Year) left leg amputation 1957 right knee replacement carpal tunnel release-both hands bone spur removed fatty tissue removed from back colonoscopy 10/2015
--- OUTSIDE RECORDS SUMMARY | 2024-08-02 22:27 | XMS_ITS | Encounter Summary ---
Author Organization [employer] Address [address] [place] [address] Care Team Providers Care Conventional Underwriter Name Role Phone Unavailable Primary Care Provider Unavailabl e Encounter Details Date Type Department Care Team (Latest Contact Info) Description 04/03/2019 Abstract [facility] CONVERSIONS Dental, Provider, DDS Social History Tobacco Use Types Packs/Day Years Used Date Smoking Tobacco: Never Assessed Sex and Gender Information Value Date Recorded Sex Assigned at Male 04/19/2022 10:24 AM EDT Legal Sex Male 10:24 AM EDT Gender Identity Not on file Sexual Orientation Not on file documented as of this encounter Plan of Treatment Not on file documented as of this encounter Visit Diagnoses Not on filedocumented in this encounter
--- OUTSIDE RECORDS SUMMARY | 2024-08-02 22:27 | XMS_ITS | Clinical Summary ---
Author Organization [employer] Address [address] [place] [address] [address] [place] [address] Care Team Providers Care Net C Developer Name Role Phone Unavailable Primary Care Provider Unavailabl e Social History Tobacco Use Types Packs/Day Years Used Date Smoking Tobacco: Never Assessed Sex and Gender Information Value Date Recorded Sex Assigned at Male 04/19/2022 10:24 AM EDT Legal Sex Male 10:24 AM EDT Gender Identity Not on file Sexual Orientation Not on file Plan of Treatment Health Maintenance Due Date Last Done Comments Depression Screening 1945 Lipid Panel 1945 Alcohol/Substance Use Screening 1959 Tobacco Screening 1959 DTaP/Tdap/Td Vaccines (1 - Tdap) 11/28/1966 Pneumococcal Vaccine: 50+ Ye ars (1 of 1 - PCV) 11/28/1997 Zoster Vaccines (1 of 2) 11/28/1997 RSV Patients and Pa tients Aged 60 years or older (1 - 1-dose 75+ series) 11/28/2022 COVID-19 Vaccine ( - 2023-2 5 season) 2024 Influenza Vaccine (#1) 2024 HIB Vaccines Aged Out No longer eligi ble based on patient's age to complete this topic HPV Vaccines Aged Out No longer eligi ble based on patient's age to complete this topic Hepatitis A Vaccines Aged Out No long er eligible based on patient's age to complete this topic Hepatitis B Vaccines Aged Out No long er eligible based on patient's age to complete this topic IPV Vaccines Aged Out No longer eligi ble based on patient's age to complete this topic Meningococcal Vaccine Aged Out No meño galilea eligible based on patient's age to complete this topic RSV under 20 months Aged Out No longe r eligible based on patient's age to complete this topic Rotavirus Vaccines Aged Out No longer eligible based on patient's age to complete this topic
[2024-08-02] MEDS: 0.9 % Sodium Chloride 500 ML IV (23:47)
[2024-08-02 23:48] VITALS: BP 124/66; PULSE 71; RESP 16; TEMP 37.8; O2SAT 95
[2024-08-02] MEDS: iohexoL 350 MG/ML 100 ML INFUS..BTL 85 ML IV (23:49)
[2024-08-02] MEDS: cefTRIAXone sodium 2 GM VIAL IVPUSH (23:52)
[2024-08-03] MEDS: Dicyclomine HCl 10 MG CAPSULE 20 MG PO (01:44)
[2024-08-03 01:46] VITALS: BP 116/68; PULSE 65; RESP 20; TEMP 37; O2SAT 95
[2024-08-03 04:00] VITALS: BP 106/66; PULSE 59; RESP 16; TEMP 36.6; O2SAT 96
[2024-08-03 04:22] VITALS: BP 106/66; PULSE 59; RESP 16; TEMP 36.6; O2SAT 96
== END 2024-08-03 04:30 | disposition home or self-care (01) ==
PROVIDERS: Registered Nurse Emergency; Emergency Provider Emergency Medicine; PCP Internal Medicine
DX: K52.9 Noninfective gastroenteritis and colitis, unspecified (principal); R11.2 Nausea with vomiting, unspecified; I10 Essential (primary) hypertension; E11.9 Type 2 diabetes mellitus without complications; R10.2 Pelvic and perineal pain; Z79.84 Long term (current) use of oral hypoglycemic drugs; Z03.818 Encounter for observation for suspected exposure to other biological agents ruled out; Z79.899 Other long term (current) drug therapy
CPT/HCPCS: 0241U; 74177; 80053; 81001; 81003; 83735; 85025; 85610; 87086; 96361; 96374; 99285; J0696; Q9967

== ENCOUNTER → 2024-08-02 23:24 | Outpatient (BNV) | payer MEDICARE, MEDICAID, SELFPAY | PROVIDERS: Emergency Provider Emergency Medicine; PCP Internal Medicine; Visit Provider Radiology Diagnostic Radiology | DX: R10.84 Generalized abdominal pain (principal); R19.7 Diarrhea, unspecified; R11.2 Nausea with vomiting, unspecified | CPT/HCPCS: 74177 ==

== ENCOUNTER 2025-05-24 11:35 | Emergency (ER) | payer MEDICARE, MEDICAID, SELFPAY ==
--- NOTE | ~2025-05-24 | CT_ITS ---
EXAMINATION: CT HEAD WITHOUT IV CONTRAST HISTORY: fall, head strike, pain. TECHNIQUE: Unenhanced helical CT of the head was performed per standard departmental protocol. Coronal and sagittal reformats of the head were also evaluated. One or more of the following techniques was used for dose reduction: Automated exposure control, adjustment of the mA and/or kV according to patient size, use of iterative reconstruction technique. DLP: 631 mGy-cm COMPARISON: There are no prior studies available for comparison. FINDINGS: BRAIN: There is no evidence of an extra-axial collection. There is no evidence of intra or extra-axial hemorrhage. The ventricles and extra-axial CSF spaces are slightly prominent suggestive of mild generalized atrophy similar to previous exam. 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 There is nonspecific periventricular white matter disease. No mass, mass effect or acute infarct is seen. There is atherosclerotic disease. SINUSES: Mild inflammatory changes in the left sphenoid sinus and bilateral frontal ethmoidal recess regions. The mastoid air cells and middle ear cavities are well pneumatized. ORBITS: The visualized orbits are unremarkable. BONES/SOFT TISSUES: The extracranial soft tissues are unremarkable. The calvarium is intact. No suspicious lytic or sclerotic lesions. CT/CT head/brain wo IV con IMPRESSION: No acute intracranial abnormality. Electronically signed by: María Harper MD 05/24/2025 01:43 PM [facility] [place]
--- NOTE | ~2025-05-24 | CT_ITS ---
EXAMINATION: CT CERVICAL SPINE WITHOUT CONTRAST CLINICAL INFORMATION: Fall, head strike, pain COMPARISON: CT 06/02/2021 TECHNIQUE: Axial imaging. Sagittal and coronal reconstructions. This CT examination was performed using dose optimization techniques as appropriate, variously including the following: *Automated exposure control *Adjustment of mA and/or kV according to patient size (this includes techniques or standardized protocols for targeted exams where dose is matched to indication/reason for exam; i.e. extremities or head) *Use of iterative reconstruction technique FINDINGS: Craniocervical and atlantoaxial articulation is maintained. Grade 1 anterolisthesis of C4-5, C7-T1, similar to previous.. This is likely degenerative. No evidence of acute fracture or traumatic subluxation. Severe multilevel spondylosis with multilevel disc space narrowing and marginal osteophytes, more prominent at C3-4, C5-6, C6-7.. Posterior osteophytes at multiple levels protruding into the central canal. Multilevel facet degeneration. Diffuse osteopenia. No acute findings on the limited views of the intracranial contents. No cervical fluid collection or masses. No prevertebral soft tissue swelling. No consolidation or effusion in the lung apices. CT/CT cervical spine wo IV con IMPRESSION: No CT evidence of acute fracture or traumatic subluxation.. Severe multilevel spondylosis, detailed above. Fleischner guidelines were followed. Electronically signed by: Ej Muñoz MD 05/24/2025 01:44 PM EST
[2025-05-24 11:45] VITALS: BP 166/80; PULSE 60; RESP 15; TEMP 36.3; O2SAT 97; BMI 28.3
--- NOTE | 2025-05-24 11:46 | ED_ITS ---
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 Patient states that he works at a [employer] and he slipped and hit his head on the ground. Patient states that he did not lose consciousness with the incident. Patient states that he takes a daily aspirin. Patient states that he does not know when his last tetanus shot was. Patient denies any other complaints at this time. Relieving factors: none Exacerbating factors: none Associated symptoms: denies other symptoms Treatments prior to arrival: none Related Data Home Medications ?Medication ?Instructions ?Recorded ?Confirmed ascorbic acid (vitamin C) 1,000 mg 1,000 mg PO DAILY 0 01/24/24 01/24/24 tablet (Vitamin C) aspirin 81 mg tablet,delayed 81 mg PO DAILY 01/24/24 0 01/24/24 release cyanocobalamin (vitamin B-12) 2,500 mcg sublingual EDGAR LY 01/24/24 01/24/24 2,500 mcg sublingual tablet (Vitamin B-12) levothyroxine 100 mcg tablet 100 mcg PO DAILY@0600 12/1101/24/24 metformin 500 mg tablet,extended 500 mg PO BEDTIME 12/1101/24/24 release 24 hr omega 1-zjs-zhg-fish oil 1,200 mg 1 cap PO DAILY 01/2301/24/24 (144 mg-216 mg) capsule (Fish Oil) Previous Rx's ?Medication ?Instructions ?Recorded meclizine 25 mg tablet 25 mg PO BID PRN dizziness # 60 tabs 05/18/22 pantoprazole 40 mg tablet,delayed 40 mg PO DAILY #90 t abs 05/18/22 release atorvastatin 40 mg tablet 40 mg PO DAILY #90 tabs 04/0 12/10 atenolol 50 mg tablet 50 mg PO DAILY #90 tabs 0501/09 cefuroxime axetil 500 mg tablet 500 mg PO BID #22 tabs 01/26/24 dicyclomine 20 mg tablet 20 mg PO BID PRN abdominal p ain #7 08/03/24 tabs cephalexin 500 mg capsule 500 mg PO Q6H 7 days #28 cap s 05/24/25 Allergies Allergy/AdvReac Type Severity Reaction Status Date / Time morphine (MORPHINE) Allergy Mild NAUSEA Verified 05/24/25 11:47 tramadol (Ultracet) Allergy Unknown Nausea Verified 05/24/25 11:47 Penicillins (PENICILLINS) AdvReac Mild NAUSEA & Verified 05/24/25 11:47 VOMITING oxycodone (OXYCODONE) AdvReac Unknown NAUSEA Verified 05/24/25 11:47 SEAFOOD Allergy Unknown NAUSEA & Uncoded 05/24/25 11:47 VOMITING shellfish Allergy Unknown anaphylaxis Uncoded 05/24/25 11:47 Codeine Sulfate AdvReac Unknown Nausea Uncoded 05/24/25 11:47 Review of Systems 2 Constitutional: Constitutional: Reports as per HPI Eyes: Eyes: Reports as per HPI ENT: Reports as per HPI Cardiovascular: Cardiovascular: Reports as per HPI Respiratory: Respiratory: Reports as per HPI Gastrointestinal: Gastrointestinal: Reports as per HPI Genitourinary: Genitourinary: Reports as per HPI Musculoskeletal: Musculoskeletal: Reports as per HPI Integumentary/Breasts: Skin/Breast: Reports as per HPI Neurologic: Reports as per HPI Psychiatric: Psychiatric: Reports as per HPI Endocrine: Endocrine: Reports as per HPI Hematologic/Lymphatic: Hematologic/Lymphatic: Reports as per HPI Allergic/Immunologic: Allergic/Immunologic: Reports as per HPI [facility] Past Medical History Attestation statement: The following information was validated with the patient. 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 Osteoarthritis Pancreatic divisum Acquired hypothyroidism Thoracic aortic aneurysm Above knee amputation of left lower extremity Vertigo History of esophagitis GERD (gastroesophageal reflux disease) Hypercholesteremia Surgical History H/O removal of cyst History of hand surgery History of total right knee replacement (TKR) History of carpal tunnel surgery of right wrist History of carpal tunnel surgery of left wrist Family History Family History Father Lung cancer Daughter Breast cancer Mother Breast cancer Social History Social History Household Members: Children Housing: House Do you presently have visiting nurse or other home services: No Alcohol intake: never Patient Tobacco Use Status: Never used Tobacco e-Cigarette/Vaping Use: Never Used Second Hand Smoke Exposure: No Advance Directives: No Advance Directives Information Provided: Yes Advance Directives Date on File: 06/21/09 Do you have a plan to hurt others: No Plan service: No Current occupational status: employed and retired Cognitive needs: No Hearing needs: No Vision needs: No Physical Exam ED Vital Signs: Vital Signs - 24 hr 05/24/25 11:45 05/24/25 15:00 05/24/25 15:00 Temperature 97.3 F 97.4 F 97.4 F Pulse Rate 60 63 63 Respiratory Rate 15 18 18 Blood Pressure 166/80 H 170/95 H 170/95 H Pulse Oximetry 97 97 97 Oxygen Delivery Method Room Air Room Air Room Air BMI result Body Mass Index 28.3 Const General: cooperative, no acute distress, alert and awake Nutritional Appearance: well nourished Orientation/consciousness: patient oriented x3 HENMT Other: Ears: hearing grossly normal bilaterally and external ears normal General nose exam: Normal external nose present, no nasal discharge noted and no epistaxis Mouth: Normal oral and palatal mucosa present, no drooling and no muffled voice Eyes General: appearance normal, both eyes and all related structures Periorbital: periorbital findings normal Eyelids: Yes eyelids normal Conjunctivae: conjunctivae normal Pupils: Equal, round and reactive pupils present EOM: EOMs intact bilaterally Neck Neck: Yes normal visual inspection and Yes full ROM Resp Effort & Inspection: normal respiratory effort and able to speak in complete sentences Neuro General: patient oriented x3, moves all extremities and CN's II-XI intact bilaterally Cranial nerves: Yes Equal, round and reactive pupils present Cognition (Neuro): normal cognition Extrem General: Yes normal to inspection, Yes full ROM and Yes capillary refill normal Psych Appearance: grossly normal Mental Status: mental status grossly normal Affect: normal affect Attitude: cooperative Thought process: Normal thought process present Thought content: Normal thought content present Insight: Good insight present (Psych) Course Course Course Narrative: Rapid medical examination performed in triage by Michelle Chao PA-C: Patient is a 79 year old assigned male at presenting to the emergency department with a head laceration. Patient states he slipped and fell at work, hitting his head. Detailed physical exam and review of systems are deferred to the care clinician. Imaging ordered. Patient placed back in the waiting room pending room availability and results. Medications Administered Discontinued Medications Generic Name Dose Route Start Last Admin Trade Name Freleesa PRN Reason Stop Dose Admin Diphtheria/Tetanus/Acell Pertussis 0.5 ml 05/24/25 13:59 05/24/25 14:03 Diphth,Pertus(Acell),Tet Adult 0.5 Ml Syringe IM 05/24/25 14:00 0.5 ml .ONCE ONE Administration Lidocaine/Epinephrine/Tetracaine 1 ml 05/24/25 13:59 05/24/25 14:03 Lidocaine/Racepinep/Tetracaine 3 Ml Gel.Pf.Joseph TOPICAL 05/24/25 14:00 1 ml ONCE ONE Administration Procedures Laceration L forehead: Site: face Side (If applicable): left Size (cm): 1.5 Description: irregular Depth: simple, single layer Local Anesthetic: other anesthetic (LET) Pre-repair: irrigated extensively and deep structures intact Skin layer closed with: Prolene Size (cm): 6-0 Number of sutures: 3 Technique: simple, interrupted Medical Decision Making Medical Decision Making MDM Narrative: Patient is a 79 year old assigned male at with a history of HTN, 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 Patient's physical exam was as noted in the physical exam portion of this note. Patient's CT head and c-spine showed no acute process. Patient was brought up to date on his tetanus status. I explained my physical exam findings as well as all test results to the patient. I answered all questions asked by the patient. Patient's laceration was repaired, per procedure note, without incident. Given patient's mechanism of injury and diabetic status - will cover with prophylactic antibiotic. I stressed the importance of the patient taking his medication as directed (either prescribed or as the over the counter packaging recommends). I stressed the importance of the patient following up with his primary care provider. I stressed the importance of the patient returning to the emergency department immediately if his symptoms were to worsen or if he were to develop any dizziness, shortness of breath, difficulty breathing, chest pain, blurry vision, loss of vision, nausea, vomiting, abdominal pain, fever, chills, back pain, or any other complaints. Patient verbalized agreement and understanding with this treatment plan and discharge. Differential Diagnosis Differential Diagnoses: The differential diagnosis associated with the presentation includes Forehead laceration Fall Admission/Observation Consideration of admission/observation: Escalation of care including admission/observation considered Patient would have been admitted to the hospital had his work up had any findings where hospital admission was appropriate and his clinical presentation warranted hospital admission. Independent Interpretation I performed an independent interpretation of an: CT Scan Interpretation: My interpretation is in agreement with the radiologist's impression of these imaging studies as written below. Report Number:[id number]: Total DLP = 0.00 mGy-cm Reason for Exam: fall, head strike, pain EXAMINATION: CT HEAD WITHOUT IV CONTRAST HISTORY: fall, head strike, pain. TECHNIQUE: Unenhanced helical CT of the head was performed per standard departmental protocol. Coronal and sagittal reformats of the head were also evaluated. One or more of the following techniques was used for dose reduction: Automated exposure control, adjustment of the mA and/or kV according to patient size, use of iterative reconstruction technique. DLP: 631 mGy-cm COMPARISON: There are no prior studies available for comparison. FINDINGS: BRAIN: There is no evidence of an extra-axial collection. There is no evidence of intra or extra-axial hemorrhage. The ventricles and extra-axial CSF spaces are slightly prominent suggestive of mild generalized atrophy similar to previous exam. 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 There is nonspecific periventricular white matter disease. No mass, mass effect or acute infarct is seen. There is atherosclerotic disease. SINUSES: Mild inflammatory changes in the left sphenoid sinus and bilateral frontal ethmoidal recess regions. The mastoid air cells and middle ear cavities are well pneumatized. ORBITS: The visualized orbits are unremarkable. BONES/SOFT TISSUES: The extracranial soft tissues are unremarkable. The calvarium is intact. No suspicious lytic or sclerotic lesions. CT/CT head/brain wo IV con IMPRESSION: No acute intracranial abnormality. Electronically signed by: María Harper MD 05/24/2025 01:43 PM EST Dictated By: María Harper MD Signed By: Electronically signed by María Harper MD 05/24/25 1343 Report Number: [id number]: Total DLP = 1075.00 mGy-cm Reason for Exam: fall, head strike, pain EXAMINATION: CT CERVICAL SPINE WITHOUT CONTRAST CLINICAL INFORMATION: Fall, head strike, pain COMPARISON: CT 06/02/2021 TECHNIQUE: Axial imaging. Sagittal and coronal reconstructions. This CT examination was performed using dose optimization techniques as appropriate, variously including the following: *Automated exposure control *Adjustment of mA and/or kV according to patient size (this includes techniques or standardized protocols for targeted exams where dose is matched to indication/reason for exam; i.e. extremities or head) *Use of iterative reconstruction technique FINDINGS: Craniocervical and atlantoaxial articulation is maintained. Grade 1 anterolisthesis of C4-5, C7-T1, similar to previous.. This is likely degenerative. No evidence of acute fracture or traumatic subluxation. Severe multilevel spondylosis with multilevel disc space narrowing and marginal osteophytes, more prominent at C3-4, C5-6, C6-7.. Posterior osteophytes at multiple levels protruding into the central canal. Multilevel facet degeneration. Diffuse osteopenia. No acute findings on the limited views of the intracranial contents. No cervical fluid collection or masses. No prevertebral soft tissue swelling. No consolidation or effusion in the lung apices. CT/CT cervical spine wo IV con IMPRESSION: No CT evidence of acute fracture or traumatic subluxation.. Severe multilevel spondylosis, detailed above. Fleischner guidelines were followed. Electronically signed by: Ej Muñoz MD 05/24/2025 01:44 PM [facility] Dictated By: Ej Muñoz MD Signed By: Electronically signed by Ej Muñoz MD 05/24/25 9744 Radiology Impression Discussion of test interpretation with radiology: I have reviewed the radiologist's reading. Prescription Management I considered prescription management with: Antibiotic (Given the mechanism of injury and the patient's diabetic status - he was prescribed a prophylactic antibiotic) Chronic Conditions Patient?s care impacted by: Diabetes Discharge Plan Discharge Clinical Impression: Forehead laceration Qualifiers: Encounter type: initial encounter Qualified Code(s): S01.81XA - Laceration without foreign body of other part of head, initial encounter Patient Disposition: Home, Self-Care Instructions: Care For Your Stitches (DC), Laceration (DC) Additional Instructions: Given you are a diabetic - you have been prescribed a prophylactic antibiotic - please take it as prescribed. Your laceration was repaired with (3) sutures. It is normal for the wound to ooze blood over the next few hours. IF the bleeding becomes excessive or you become concerned, please do not hesitate to return to the emergency department. Have these sutures removed in 7-10 days. They can be removed by your primary care provider, at any urgent care by their provider, or at any emergency department by any of their providers. Do NOT soak the affected area. Avoid ALL bodies of water - this including pools, lakes, [place]ado, oceans, streams, puddles, etc. until your sutures have been removed and the wound has F ULLY healed (no open areas, no scabbing). IF you are concerned about scarring, once the sutures have been removed and the scabbing has fallen away - apply sunscreen to the area every day for 1 full year . IF you are prescribed home medications and/or you are taking over the counter medications at home - it is very important you continue to do so as prescribed / directed unless told otherwise by a healthcare provider. Follow up with your primary care provider. Given this was a work place injury - you should follow up with [facility]. Do your best to stay well hydrated and rest. Return to the emergency department immediately if your symptoms worsen or if you develop any numbness, tingling, dizziness, shortness of breath, difficulty breathing, chest pain, blurry vision, loss of vision, nausea, vomiting, abdominal pain, fever, chills, back pain, or any other complaints. If you do not have a primary care provider - call any of the below numbers to establish and follow up with a primary care provider. [facility] Primary Care ([place]) [phone] [place] [address], [address] [facility] Primary Care ([address] [place]) [phone] [place] [address], [address] [facility], [address] [facility] Primary Care ([address] [place]) [phone] [place] [address], [address] [facility], [address] [facility] Primary Care ([place]) [phone] [place] [address] [address] [facility], [address] [facility] Family Medicine [phone] [address] [facility], [address] Please see the information below about our Patient Portal. If you are not yet enrolled in the [facility] Patient Portal, you will receive an enrollment email invitation following your visit to any [facility] setting. You may also self-enroll in the Patient Portal by visiting our website: [email or web address] The following information is required to access the Patient Portal: - Your [facility] Medical Record Number - Your personal home email address (must match what is in your electronic medical record, Registration staff can assist with this) - Name - Date of Capabilities of the Patient Portal: - Message some providers - View upcoming appointments - Access your health summary, medical history, and visit history - View current conditions and allergies - View procedure and lab results - View your medications, including guidelines, side effects, and precautions - Complete pre-appointment questionnaires requested by your provider - Ready summary reports of your office visits and procedures To access the Patient Portal Mobile Joseph, follow these directions: - Search [employer] in the Joseph Store or [employer] Store - Download the Joseph - Search for [facility] - Enter your login/password Prescriptions: New cephalexin 500 mg capsule 500 mg PO Q6H 7 Days Qty: 28 0RF No Action pantoprazole 40 mg tablet,delayed release (DR/EC) 40 mg PO DAILY Qty: 90 1RF meclizine 25 mg tablet 25 mg PO BID PRN (Reason: dizziness) Qty: 60 0RF atorvastatin 40 mg tablet 40 mg PO DAILY Qty: 90 1RF Rx Instructions: Schedule next PCP appt for future refills atenolol 50 mg tablet 50 mg PO DAILY Qty: 90 0RF Rx Instructions: schedule next PCP appt for future refills ascorbic acid (vitamin C) [Vitamin C] 1,000 mg Tablet 1,000 mg PO DAILY cyanocobalamin (vitamin B-12) [Vitamin B-12] 2,500 mcg Tablet, Sublingual 2,500 mcg SUBLINGUAL DAILY aspirin 81 mg Tablet,Delayed Release (Dr/Ec) 81 mg PO DAILY levothyroxine 100 mcg tablet 100 mcg PO DAILY@0600 omega 1-hqe-ule-fish oil [Fish Oil] 1,200 (144-216) mg Capsule 1 cap PO DAILY metformin 500 mg tablet extended release 24 hr 500 mg PO BEDTIME cefuroxime axetil 500 mg tablet 500 mg PO BID Qty: 22 0RF dicyclomine 20 mg tablet 20 mg PO BID PRN (Reason: abdominal pain) Qty: 7 0RF Referrals: [facility] [Provider Group] Referral Note: Given this was a work place injury, you should call to establish and follow up with [facility]. Interventions: ED Discharge Assessment Last Done: 05/24/25 15:00 Discharge Date/Time: 05/24/25 15:01 Print Language: Rwandan
[2025-05-24] MEDS: Diphth,Pertus(ACell),Tet Adult 0.5 ML SYRINGE IM (14:03)
[2025-05-24] MEDS: Lidocaine/Racepinep/Tetracaine 3 ML GEL.PF.APP 1 ML TOPICAL (14:03)
[2025-05-24 15:00] VITALS: BP 170/95; PULSE 63; RESP 18; TEMP 36.3; O2SAT 97
--- OUTSIDE RECORDS SUMMARY | 2025-05-24 18:22 | XMS_ITS | Clinical Summary ---
Author Organization [employer] Address [address] [facility] [address] [place] [address] Care Team Providers Care Engineering Team Supervisor Name Role Phone Unavailable Primary Care Provider [...] 75+ series) 11/28/2022 COVID-19 Vaccine ( - 2024-2 6 season) 2025 Influenza Vaccine (#1) 2025 HIB Vaccines Aged Out No longer eligi [...] patient's age to complete this topic Meningococcal B Vaccine Aged Out No l onger eligible based on patient's age to complete [...]
--- OUTSIDE RECORDS SUMMARY | 2025-05-24 18:22 | XMS_ITS | Clinical Summary ---
Author Organization [address] [place] [address] Address [address] [place] [address] Phone Care Team Providers Care Tank Truck Mechanic Name Role Phone Adolph Bolden MD Primary Care Provider [phone] Allergies Active Allergy Reactions Criticality Noted Date Comments Morphine 07/25/2023 Omeprazole 07/25/2023 Oxycodone-Acetaminophen 07/25/2023 Propoxyphene 07/25/2023 Shellfish Containing Products 2023 Medications No known medications Encounters Date Type Department Care Team Description 03/18/2025 9:00 AM EDT Office Visit Orthopedic Surgery [facility] [address] [address] John Magdaleno, DPM Bursitis of right foot (Primary Dx); Acute pain of right knee; Pain due to hip joint prosthesis, subsequent encounter; Dermatophytosis of nail; Pain in toe of right foot; Corns and callosities; Metatarsalgia of right foot; Tinea pedis of right foot; Bilateral femoral artery stenosis (CMS/HCC V24) from Last 3 Months Social History Tobacco Use Types Packs/Day Years Used Date Smoking Tobacco: Never Assessed Sex and Gender Information Value Date Recorded Sex Assigned at Not on file Legal Sex Male 8:20 PM EST Gender Identity Not on file Sexual Orientation Not on file Last Filed Vital Signs Vital Sign Reading Time Taken Comments Blood Pressure 143/68 03/27/2024 1:19 PM EDT Pulse 73 03/27/2024 1:19 PM EDT Temperature - - Respiratory Rate - - Oxygen Saturation - - Inhaled Oxygen Concentration - - Weight 84.8 kg (187 lb) 09/03/2024 8:44 AM EDT Height 177.8 cm (5' 10 ) 09/03/2024 8:44 AM EDT Body Mass Index 26.83 09/03/2024 8:44 AM EDT Plan of Treatment Upcoming Encounters Date Type Department Care Team (Late st Contact Info) Description 06/17/2025 8:30 AM EST Office Visit Orthopedic Surgery - [place] [address] [phone] John Magdaleno, DPM [address] [address] Health Maintenance Due Date Last Done Comments Diabetes: Annual GFR (Glomerular Filtration Rate) 1947 Diabetes: Annual Foot Exam 11/28/1957 Diabetes: Annual Retina Eye Exam 11/28/1955 RSV Immunization Adult Patients (1 - 1-dose 75+ series) 11/28/2022 Cholesterol Screening (Lipid Panel) 07/14/2023 Falls Risk Assessment 07/14/2023 Hepatitis C Screening 07/14/2023 Medicare Annual Wellness Visit 07/14/2023 Social Influencers of Health Screening 07/14/2023 Zoster Vaccines (3 of 3) 03/18/2024 024, 01/20/2024, 06/08/2021, Additional history exists Diabetes: Annual Urine Albumin-Creatinine Ratio (uACR) 06/04/2024 Diabetes: Blood Sugar Control Test (HGBA1C) 06/04/2024 Hypertension/CHF/CAD Annual BMP Blood Test 06/04/2024 Depression Screening 06/20/2024 COVID-19 Vaccine ( season) 2025 01/04/2021, 12/14/2020 Influenza Vaccine (#1) 2025 03/25/2020, 2006 DTaP,Tdap,and Td Vaccines (4 - Td or Tdap) 04/12/2031 04/12/2021, 04/04/2017, 12/25/2010 Pneumococcal Vaccine: 50+ Years Completed 06/17/2021, 09/29/2015, 01/03/2012 HIB Vaccines Aged Out No longer eligi [...] on patient's age to complete this topic MMR Vaccines Aged Out No longer eligi ble based on patient's age to complete this topic Meningococcal ACWY Vaccine Aged Out N o longer eligible based on patient's age to complete this topic Meningococcal B Vaccine Aged Out No l onger eligible based on patient's age to complete this topic RSV Immunization Patients Under 20 months Aged Out No longer eligible based on patient's age to complete this topic Varicella Vaccines Aged Out No longer eligible based on patient's age to complete this topic Insurance MEDICARE MEDICAID - [place] Care Teams Tank Truck Mechanic Relationship Specialty Start Date End Date Adolph Bolden MD [address] [facility] [address] [place] [address] PCP - General 06/01/23
--- OUTSIDE RECORDS SUMMARY | 2025-05-24 18:22 | XMS_ITS | Encounter Summary ---
Author Organization [employer] Address [address] [facility] 7 [place] [address] Care Team Providers Care Supply Coordinator Name Role Phone Unavailable Primary Care Provider Unavailabl e Encounter Details Date Type Department Care Team (Latest Contact Info) Description 04/03/2019 Abstract [facility] CONVERSIONS Dental, Provider, DDS Social History [...]
== END 2025-05-24 15:01 | disposition home or self-care (01) ==
PROVIDERS: Emergency Provider Emergency Medicine
DX: S01.112A Laceration without foreign body of left eyelid and periocular area, initial encounter (principal); R51.9 Headache, unspecified; M54.2 Cervicalgia; W01.0XXA Fall on same level from slipping, tripping and stumbling without subsequent striking against object, initial encounter; Y93.01 Activity, walking, marching and hiking; Y92.9 Unspecified place or not applicable; Y99.0 Civilian activity done for income or pay; Z79.899 Other long term (current) drug therapy; Z23 Encounter for immunization
CPT/HCPCS: 12011; 70450; 72125; 90471; 90715; 99282; 99284

== ENCOUNTER → 2025-05-24 11:47 | Outpatient (BNV) | payer MEDICARE, MEDICAID, SELFPAY | PROVIDERS: Emergency Provider Emergency Medicine; Visit Provider Radiology Diagnostic Ultrasound | DX: S09.90XA Unspecified injury of head, initial encounter (principal); M54.2 Cervicalgia; M47.812 Spondylosis without myelopathy or radiculopathy, cervical region; Z04.3 Encounter for examination and observation following other accident | CPT/HCPCS: 70450 ==